=== PATIENT | female | born 1960 | race Caucasian/White ===

== ENCOUNTER 2017-11-20 19:30 | Inpatient (IN) | payer OTHER ==
[~2017-11-20] VITALS: Ht 152.4 cm; Wt 58.1 kg
[2017-11-20] MEDS ORDERED: PROAIR HFA8.5 GM INH (19:48)
[2017-11-20 20:04] LABS: ABSOLUTE BASOPHIL COUNT 0.1 /CUMM (0.0-0.2); ABSOLUTE EOSINOPHIL COUNT 0.1 /CUMM (0.0-0.7); ABSOLUTE GRANULOCYTE CT 7.1 /CUMM (1.4-6.5); ABSOLUTE LYMPH COUNT 2.5 /CUMM (1.2-3.4); ABSOLUTE MONOCYTE COUNT 0.5 /CUMM (0.10-0.60); BASOPHIL % 1.1 % (0.0-2.0); EOSINOPHIL % 0.8 % (0-5); GRANULOCYTE % 68.7 % (42.2-75.2); HEMATOCRIT 42.7 % (37-47); MEAN CORPUSCULAR HGB CONC 33.6 G/DL (33.0-37.0); MEAN CORPUSCULAR VOLUME 95.2 FL (81.0-99.0); PLATELET COUNT 385 /CUMM (130-400); RBC DISTRIBUTION WIDTH 14.3 % (11.5-14.5); RED BLOOD CELL CT 4.48 /CUMM (4.20-5.40); WHITE BLOOD CELL COUNT 10.3 /CUMM (4.8-10.8)
--- NOTE | 2017-11-20 20:30 | ED AMS/SEIZURE/WEAK/DIZZY ---
See Addendum History of Present Illness General Chief Complaint: Seizure Stated Complaint: SEIZURE Source: patient Exam Limitations: no limitations Vital Signs & Intake/Output Vital Signs & Intake/Output Vital Signs Date Time Temp Pulse Resp B/P B/P Pulse O2 O2 Flow FiO2 Mean Ox Delivery Rate 11/21 0316 98.3 78 18 116/62 99 Room Air 11/21 0212 98.1 77 18 114/60 98 Room Air 11/21 0158 98 Room Air 11/21 0030 98.4 75 18 117/57 98 Room Air 11/20 2235 98.7 82 18 109/55 97 Room Air 11/20 2002 95 Room Air 11/20 1936 97.5 93 18 147/67 95 Room Air ED Intake and Output 11/21 0000 11/20 1200 Intake Total Output Total Balance Patient 133 lb Weight Weight Standing Scale Measurement Method Triage Note: PT BIBA FROM HOME C/O SEIZURE X45 MINS PRIOR TO ARRIVAL. PT ARRIVED A&0X1. PTS BSG ON ARRIVAL 135. VSS. PT IS UNABLE TO ANSWER MOST QUESTIONS. PTS SON IN ANSWERING QUESTIONS. PT IS A DAILY SMOKER, OD ON WELLBUTRIN 2X WEEKS AGO IN HOSPITAL AND HAD MULTIPLE SEIZURES. SINCE THEN PT HAS NOT HAD ANY MORE SEIZURE UNTIL TONIGHT AROUND 1906. PTS SON WHO IS AN EMT WITNESSED SEIZURE "1-2 MIN TONIC CLONIC SEIZURE" PT FELL TO THE GROUND ,-HEADSTRIKE, -LOC, -TRAUMA. PT STATES LEFT ARM IS BOTHERING PT FROM SORENESS OF A PREVIOUS IV SITE. PT STATES NAGY FOR THE PAST FEW DAYS. PA STUDENT IN FOR EVAL. Triage Nurses Notes Reviewed? yes Onset: Abrupt Duration: hour(s): (2), better, gone now Timing: single episode today Injury Environment: home Severity: mild, moderate No Modifying Factors: none LMP (ages 10-50): unknown : No Patient currently breastfeeds: No HPI: 57 year female no past medical history presents for evaluation after a possible seizure. Patient and family member states that approximately 30 minutes prior to presentation patient was standing outside feeling well until she suddenly became unresponsive eyes rolled back in her head and foaming at the mouth and had rhythmic movements of her arms and legs. She did not bite her tongue she was not incontinent. Patient reports that she became dizzy lightheaded and passed out. She never had chest pain or shortness of breath. She was out for approximately 60-90 seconds before coming to. She was post ictal according to bystanders for approximately 15 minutes. She was confused and lethargic. The time patient arrived she return to her baseline she offers no complaints no chest pain or shortness of breath no lower extremity edema. 2 weeks ago she had a seizure after a Wellbutrin and alcohol overdose. Patient denies any history of alcohol withdrawal seizures she does not drink daily no history of alcohol withdrawal. She is not on seizure medications. She denies slurred speech or one-sided weakness. (Steve Lam) Allergies Coded Allergies: Penicillins (UPSET STOMACH PER PT 11/20/17) diphenhydramine (From BENADRYL) (UPSET STOMACH PER PT 11/20/17) (Lamberto SWEENEY,Scout Rojsa) Past History Travel History Traveled to [place] past 21 day No Medical History Any Pertinent Medical History? see below for history Neurological: NONE EENT: NONE Cardiovascular: NONE Respiratory: NONE Gastrointestinal: NONE Hepatic: NONE Renal: NONE Musculoskeletal: NONE Psychiatric: NONE Endocrine: NONE Surgical History Surgical History: non-contributory Psychosocial History What is your primary language [place]alander Tobacco Use: Current Daily Use Daily Tobacco Use Amount/Type: => 5 Cigarettes daily ETOH Use: occasional use Illicit Drug Use: denies illicit drug use Family History Hx Contributory? No (Steve Lam) Review of Systems Review of Systems Constitutional: Reports: no symptoms. EENTM: Reports: no symptoms. Respiratory: Reports: no symptoms. Cardiovascular: Reports: no symptoms. GI: Reports: no symptoms. Genitourinary: Reports: no symptoms. Musculoskeletal: Reports: no symptoms. Skin: Reports: no symptoms. Neurological/Psychological: Reports: see HPI (DIZZY LIGHTHEADED), tonic-clonic seizures. Hematologic/Endocrine: Reports: no symptoms. Immunologic/Allergic: Reports: no symptoms. All Other Systems: Reviewed and Negative (Steve Lam) Physical Exam Physical Exam General Appearance: well developed/nourished, no apparent distress, alert, awake Head: atraumatic, normal appearance Eyes: Bilateral: normal appearance, PERRL, EOMI. Ears, Nose, Throat: normal pharynx, normal ENT inspection, hearing grossly normal Neck: normal inspection, supple, full range of motion Respiratory: normal breath sounds, chest non-tender, no respiratory distress, lungs clear Cardiovascular: regular rate/rhythm, normal peripheral pulses Peripheral Pulses: 2+ radial (R), 2+ radial (L) Gastrointestinal: normal bowel sounds, soft, non-tender, no organomegaly Back: normal inspection, normal range of motion, no vertebral tenderness Extremities: normal range of motion Neurologic/Psych: no motor/sensory deficits, awake, alert, oriented x 3, normal mood/affect Reflexes: 1+: knee (R), knee (L). Skin: intact, normal color, warm/dry Lymphatic: no anterior cervical darryn Core Measures ACS in differential dx? Yes CVA/TIA Diagnosis No Sepsis Present: No Sepsis Focused Exam Completed? No (Wesley DE SOUZA,Steve) Progress Differential Diagnosis: arrythmia, alcohol intoxication, anemia, benign positional vertigo, CVA/stroke, dehydration, drug intoxication, encephalitis, electrolyte imbalance, intracranial Hem., intracranial mass/tumor, migraine NAGY, pneumonia, presyncope, post-traumatic vertigo, sepsis, seizure disorder, subarachnoid Hem., UTI/pyelo, vertebrobasilar insuff Plan of Care: Orders Procedure Date/time Status PARTIAL THROMBOPLASTIN TIME 11/21 0815 Active VRE ACTIVE SURVIELLANCE 11/21 0400 Active ACTIVE SURVEILLANCE NARES 11/21 0400 Active Skin Integrity Protocol 11/21 0321 Active Precautions 11/21 0321 Active Pain Treatment and Response 11/21 0321 Active Isolation 11/21 0321 Active Heparin Drip- ACS 11/21 0321 Active Patient Data 11/21 0315 Active Admit to inpatient 11/21 0204 Active Add-on Test (ER Only) 11/21 0133 Active TROPONIN LEVEL 11/20 2332 Complete EKG 11/[address] HEAD WO IV CONTRAST 11/20 2028 Active Add-on Test (ER Only) 11/20 1958 Active URINE DRUG SCREEN FOR ER ONLY 11/20 1958 Complete PARTIAL THROMBOPLASTIN TIME 11/21 1955 Complete PROTHROMBIN TIME 11/21 1955 Complete ETHANOL 11/21 1955 Complete Intake & Output 11/20 1941 Active FingerStick- Glucose 11/20 1938 Active Seizure Precautions 11/21 1935 Active URINALYSIS 11/21 1935 Complete TROPONIN LEVEL 11/21 1935 Complete PROLACTIN 11/21 1935 Complete MAGNESIUM 11/21 1935 Complete COMPREHENSIVE METABOLIC PANEL 11/21 1935 Complete CBC WITHOUT DIFFERENTIAL 11/21 1935 Complete EKG 11/21 1935 Active Current Medications Sig/Rachael Start time Last Medication Dose Stop Time Status Admin Heparin Sodium 25,000 UNIT Q24H 11/21 0145 AC 11/21 (Porcine) 0217 (Heparin) Sodium Chloride 500 ML Laboratory Tests 11/20/17 2358: Troponin I 0.39 *H 11/20/17 2328: Urine Opiates Screen < 100, Methadone Screen < 40, Barbiturate Screen < 60, Ur Phencyclidine Scrn < 6.00, Amphetamines Screen 500, U Benzodiazepines Scrn < 85, Urine Cocaine Screen 63, Urine Cannabis Screen < 5.00, Urinalysis HEAVY H, Urine Color YEL, Urine Clarity HAZY H, Urine pH 6.0, Ur Specific [place] >= 1.030, Urine Protein 30 H, Urine Ketones TRACE H, Urine Nitrite NEG, Urine Bilirubin NEG, Urine Urobilinogen 0.2, Ur Leukocyte Esterase NEG, Ur Microscopic SEDIMENT EXAMINED, Urine WBC RARE, Ur Epithelial Cells FEW, Urine Crystals 1+ CA OX H, Urine Bacteria MOD H, Urine Mucus FEW, Urine Hemoglobin NEG, Urine Glucose NEG 11/20/171955: Anion Gap 17 H, Estimated GFR > 60, BUN/Creatinine Ratio 20.0, Glucose 113 H, Calcium 10.1, Magnesium 2.5 H, Total Bilirubin 0.3, AST 117 H, ALT 225 H, Alkaline Phosphatase 106, Troponin I 0.06, Total Protein 7.8, Albumin 4.4, Globulin 3.4, Albumin/Globulin Ratio 1.3, Prolactin 48.9 H, PT 11.8, INR 1.08, APTT 27, CBC w Diff NO MAN DIFF REQ, RBC 4.48, MCV 95.2, MCH 32.0 H, MCHC 33.6, RDW 14.3, MPV 8.0, Gran % 68.7, Lymphocytes % 24.1, Monocytes % 5.3, Eosinophils % 0.8, Basophils % 1.1, Absolute Granulocytes 7.1 H, Absolute Lymphocytes 2.5, Absolute Monocytes 0.5, Absolute Eosinophils 0.1, Absolute Basophils 0.1, Serum Alcohol < 10.0 Patient is here after a seizure versus possible syncopal episode. Patient did have a seizure 2 weeks ago after an overdose of Wellbutrin. She denies any chest pain or shortness of breath. Labs EKG CT head ordered. Blood work is not showing any acute findings initially. Initial EKG is negative. Head CT is negative. Spoke with Dr. Bai recommends coverage with Keppra 500 mg twice a day and outpatient EEG. Patient will get a repeat EKG and troponin due to syncopal episode versus seizure. Repeat EKG is unchanged but troponin is +0.39. Spoke with Dr. Perez who recommends admission, telemetry, aspirin and heparin. Case discussed with Dr. Orantes he agrees. . Patient has no chest pain. Diagnostic Imaging: Viewed by Me: CT Scan. Discussed w/RAD: CT Scan. Radiology Impression: SEE HARD COPY REPORT NO INTRACRANIAL FINDINGS Initial ED EKG: normal sinus rhythm, ABNORMAL R WAVE PROGRESSION Repeat EKG: unchanged (Steve Lam) Departure Departure Disposition: STILL A PATIENT Condition: Stable Clinical Impression Primary Impression: NSTEMI (non-ST elevated myocardial infarction) Referrals: Britney Ballesteros APRN (PCP/Family) Departure Forms: Customer Survey General Discharge Information Admission Note Spoke With: Augie Limon MD Documentation of Exam: Documentation of any treatments & extenuating circumstances including Concerns Regarding Discharge (functional status, medication knowledge or non-compliance, living conditions, etc.) that warrant an admission rather than observation: [ Serial labs, serial EKGs, IV heparin, cardiology, echocardiogram, neurology,] (Steve Lam) Admission Note Spoke With: Augie Limon MD PA/CIRCUS ARTIST Co-Sign Statement Statement: ED Attending supervision documentation- [x] I saw and evaluated the patient. I have also reviewed all the pertinent lab results and diagnostic results. I agree with the findings and the plan of care as documented in the PA's/CIRCUS ARTIST's documentation. 11/21/17, 1:35am... I assumed care of patient with +trop 0.39... pt is now chest pain free with non acute EKG's. Pt also with syncopal episode, possible due to dysrhythmia/SC... pt merits icu level care, serial trops/ekg, cards eval in AM. Mr. Olson discussed with dr. Perez who concurs with plan. [] I have reviewed the ED Record and agree with the PA's/CIRCUS ARTIST's documentation. [] Additions or exceptions (if any) to the PAs/CIRCUS ARTIST's note and plan are summarized below: [] (Lamberto SWEENEY,Scout Rojas)
[2017-11-21 02:00] LABS: PT 11.8 SEC (9.4-12.5); PTT 27 SEC (25-37)
--- NOTE | 2017-11-21 02:39 | History & Physical ---
Alejandro Barajas 11/21/17 0238: General Information and HPI MD Statement: I have seen and personally examined MIKAELA HOOD and documented this H&P. The patient is a 57 year old F who presented with a patient stated chief complaint of [seizure]. Source of Information: patient Exam Limitations: no limitations History of Present Illness: The patient is a 57 years old lady who has come here with cheif complaint of seizure at 19:06 that was witnessed by her son which lasted for 1-2 minutes. She was standing when she had seizure and her son cuaght her and stopped her from falling. She did not have LOC and remembers everything. She has not lost the control of her bladder or bowel. This was the first time that she has had seizure. She had no dizziness, no headache, no palpitation or numbness and tingling, no change in vision. She had no change in appetite or bowel habit. She has a remote history of palpitaton 10 years ago which was investigated but nothing significant was found. She also has a history of migrane headaches but this has not been an issue recently. She has gluten sensitivity (celiac?). She also has anxiety and is on xanax for that. She has been smoking 1/2 packs of ciggarets from whrn she was 14 and has been on and off welbutrin from 10 years ago. about 10 days ago she overdosed on welbutrin (as much as one months worth) and was admitted to [facility] ICU. She had a troponin on 0.39 in the ED with normal 1st ECG, second ECG shows possible flatennings of T wave in leads I and V2. Allergies/Medications Compliance With Home Meds: GOOD Past History Travel History Traveled to [place] past 21 day No Medical History Neurological: migraine EENT: NONE Cardiovascular: NONE (Palpitation) Respiratory: NONE Gastrointestinal: NONE Hepatic: NONE Renal: NONE Musculoskeletal: NONE Psychiatric: anxiety, depression Endocrine: NONE Surgical History Surgical History: non-contributory Past Family/Social History Psychosocial History Smoking Status: Current Everyday Smoker ETOH Use: occasional use Illicit Drug Use: denies illicit drug use Review of Systems Review of Systems Constitutional: Reports: no symptoms, see HPI. EENTM: Reports: no symptoms, see HPI. Denies: blurred vision, double vision, visual changes, hearing changes. Cardiovascular: Reports: no symptoms. Respiratory: Reports: no symptoms. GI: Reports: no symptoms. Genitourinary: Reports: no symptoms. Musculoskeletal: Reports: no symptoms. Skin: Reports: no symptoms. Neurological/Psychological: Reports: no symptoms. Hematologic/Endocrine: Reports: no symptoms. Immunologic/Allergic: Reports: see HPI. Exam & Diagnostic Data Last 24 Hrs of Vital Signs/I&O Vital Signs Date Time Temp Pulse Resp B/P B/P Pulse O2 O2 Flow FiO2 Mean Ox Delivery Rate 11/21 0316 98.3 78 18 116/62 99 Room Air 11/21 0212 98.1 77 18 114/60 98 Room Air 11/21 0158 98 Room Air 11/21 0030 98.4 75 18 117/57 98 Room Air 11/20 2235 98.7 82 18 109/55 97 Room Air 11/20 2002 95 Room Air 11/20 1936 97.5 93 18 147/67 95 Room Air Intake & Output 11/21 0800 07 0000 11/20 1600 Intake Total Output Total Balance Patient 133 lb Weight Weight Standing Scale Measurement Method Physical Exam General Appearance Alert, Oriented X3, Cooperative, No Acute Distress Skin No Rashes Skin Temp/Moisture Exam: Warm/Dry Sepsis Skin Exam (color): Normal for Ethnicity HEENT Atraumatic Neck Supple, No JVD Cardiovascular Regular Rate, Normal S1, Normal S2, No Murmurs Lungs Clear to Auscultation, Normal Air Movement Abdomen Normal Bowel Sounds, Soft, No Tenderness, No Hepatospenomegaly, No Masses Neurological Normal Speech, Strength at 5/5 X4 Ext, Sensation Intact, Cranial Nerves 3-12 NL Extremities No Clubbing, No Cyanosis, No Edema, Normal Pulses, No Tenderness/ Swelling Vascular Normal Pulses, Pulses Symmetrical Sepsis Peripheral Pulse Location: Dorsalis Pedis Last 24 Hrs of Labs/Alejo: Laboratory Tests 11/20/17 2358: Troponin I 0.39 *H 11/20/17 2328: Urine Opiates Screen < 100, Methadone Screen < 40, Barbiturate Screen < 60, Ur Phencyclidine Scrn < 6.00, Amphetamines Screen 500, U Benzodiazepines Scrn < 85, Urine Cocaine Screen 63, Urine Cannabis Screen < 5.00, Urinalysis HEAVY H, Urine Color YEL, Urine Clarity HAZY H, Urine pH 6.0, Ur Specific [place] >= 1.030, Urine Protein 30 H, Urine Ketones TRACE H, Urine Nitrite NEG, Urine Bilirubin NEG, Urine Urobilinogen 0.2, Ur Leukocyte Esterase NEG, Ur Microscopic SEDIMENT EXAMINED, Urine WBC RARE, Ur Epithelial Cells FEW, Urine Crystals 1+ CA OX H, Urine Bacteria MOD H, Urine Mucus FEW, Urine Hemoglobin NEG, Urine Glucose NEG 11/20/171955: Anion Gap 17 H, Estimated GFR > 60, BUN/Creatinine Ratio 20.0, Glucose 113 H, Calcium 10.1, Magnesium 2.5 H, Total Bilirubin 0.3, AST 117 H, ALT 225 H, Alkaline Phosphatase 106, Troponin I 0.06, Total Protein 7.8, Albumin 4.4, Globulin 3.4, Albumin/Globulin Ratio 1.3, Prolactin 48.9 H, PT 11.8, INR 1.08, APTT 27, CBC w Diff NO MAN DIFF REQ, RBC 4.48, MCV 95.2, MCH 32.0 H, MCHC 33.6, RDW 14.3, MPV 8.0, Gran % 68.7, Lymphocytes % 24.1, Monocytes % 5.3, Eosinophils % 0.8, Basophils % 1.1, Absolute Granulocytes 7.1 H, Absolute Lymphocytes 2.5, Absolute Monocytes 0.5, Absolute Eosinophils 0.1, Absolute Basophils 0.1, Serum Alcohol < 10.0 Microbiology 11/22 399 UPPER RESP: Surveillance Culture - ORD 11/22 399 GI: Surveillance Culture - ORD Diagnostic Data EKG Results 1st ECG normal rate and rythem, 2nd ECG possible flatenning of T wave in Leads I and V2 Other Results Head CT scan: Normal Assessment/Plan Assessment: The patient came in with witnessed seizure, BS in ED was 135, head CT was normal and electrolytes were normal, she was overdosed with wellbutrin that decreases threshold of seizure. We need to inestigate all the possible causes of he new onset seizure. She needs neurologist consultation. She was found to have an increased troponin from 0.06 to 0.39 when she was in the ED. She is transferred to ICU to check her for ACS. She will have more troponin levels and ECGs checked. As Ranked By This Provider Problem List: 1. Seizure 2. Acute coronary syndrome Core Measures/Misc (02/01) Acute Coronary Syndrome ACS Diagnosis: No Congestive Heart Failure Congestive Heart Failure Diagnosis No Cerebrovascular Accident CVA/TIA Diagnosis: No VTE (View Protocol) VTE Risk Factors Age>40 No Mechanical VTE Prophylaxis d/t N/A MechProphylax Ordered No VTE Pharm Prophylaxis d/t NA PharmProphylax ordered Sepsis (View protocol) Sepsis Present: No If YES complete Sepsis Event Note If YES complete Sepsis Event Note Augie Limon MD 11/21/17 3838: General Information and HPI MD Statement: I have seen and personally examined MIKAELA HOOD and documented this H&P. The patient is a 57 year old F who presented with a patient stated chief complaint of [seizure]. Allergies/Medications Allergies: Coded Allergies: amoxicillin (Severe, vomitting 11/21/17) Penicillins (UPSET STOMACH PER PT 11/20/17) diphenhydramine (From BENADRYL) (UPSET STOMACH PER PT 11/20/17) gluten (Mild, GI DISTRESS 11/21/17) Exam & Diagnostic Data Last 24 Hrs of Vital Signs/I&O Vital Signs Date Time Temp Pulse Resp B/P B/P Pulse O2 O2 Flow FiO2 Mean Ox Delivery Rate 11/21 0316 98.3 78 18 116/62 99 Room Air 11/21 0212 98.1 77 18 114/60 98 Room Air 11/21 0158 98 Room Air 11/21 0030 98.4 75 18 117/57 98 Room Air 11/20 2235 98.7 82 18 109/55 97 Room Air 11/20 2002 95 Room Air 11/20 1936 97.5 93 18 147/67 95 Room Air Intake & Output 11/21 0800 11/21 0000 11/20 1600 Intake Total Output Total Balance Patient 133 lb Weight Weight Standing Scale Measurement Method Physical Exam General Appearance Alert, Oriented X3, Cooperative, No Acute Distress Skin No Rashes HEENT Atraumatic, PERRLA, EOMI Neck Supple, No JVD Cardiovascular Regular Rate, Normal S1, Normal S2, No Murmurs Lungs Clear to Auscultation, Normal Air Movement Abdomen Normal Bowel Sounds, Soft, No Tenderness, No Hepatospenomegaly, No Masses Neurological Normal Speech Last 24 Hrs of Labs/Alejo: Laboratory Tests 11/20/17 2358: Troponin I 0.39 *H 11/20/17 2328: Urine Opiates Screen < 100, Methadone Screen < 40, Barbiturate Screen < 60, Ur Phencyclidine Scrn < 6.00, Amphetamines Screen 500, U Benzodiazepines Scrn < 85, Urine Cocaine Screen 63, Urine Cannabis Screen < 5.00, Urinalysis HEAVY H, Urine Color YEL, Urine Clarity HAZY H, Urine pH 6.0, Ur Specific [place] >= 1.030, Urine Protein 30 H, Urine Ketones TRACE H, Urine Nitrite NEG, Urine Bilirubin NEG, Urine Urobilinogen 0.2, Ur Leukocyte Esterase NEG, Ur Microscopic SEDIMENT EXAMINED, Urine WBC RARE, Ur Epithelial Cells FEW, Urine Crystals 1+ CA OX H, Urine Bacteria MOD H, Urine Mucus FEW, Urine Hemoglobin NEG, Urine Glucose NEG 11/20/171955: Anion Gap 17 H, Estimated GFR > 60, BUN/Creatinine Ratio 20.0, Glucose 113 H, Calcium 10.1, Magnesium 2.5 H, Total Bilirubin 0.3, AST 117 H, ALT 225 H, Alkaline Phosphatase 106, Troponin I 0.06, Total Protein 7.8, Albumin 4.4, Globulin 3.4, Albumin/Globulin Ratio 1.3, Prolactin 48.9 H, PT 11.8, INR 1.08, APTT 27, CBC w Diff NO MAN DIFF REQ, RBC 4.48, MCV 95.2, MCH 32.0 H, MCHC 33.6, RDW 14.3, MPV 8.0, Gran % 68.7, Lymphocytes % 24.1, Monocytes % 5.3, Eosinophils % 0.8, Basophils % 1.1, Absolute Granulocytes 7.1 H, Absolute Lymphocytes 2.5, Absolute Monocytes 0.5, Absolute Eosinophils 0.1, Absolute Basophils 0.1, Serum Alcohol < 10.0 Microbiology 11/22 399 UPPER RESP: Surveillance Culture - ORD 11/22 399 GI: Surveillance Culture - ORD Core Measures/Misc (02/01) Sepsis (View protocol) If YES complete Sepsis Event Note If YES complete Sepsis Event Note Attending MD Review Statement Attending Statement Attending MD Statement: examined this patient, discuss w/resident/PA/[employer]ER Attending Assessment/Plan: This patient is a 57 years old female with a significant past medical history for a recent SI attempted with Wellbutrin (aprox 10 days ago, treated at [facility] denied this visit) who came in after a witnessed seizure (no prodrome or post- ictal symptoms). She was standing when she had a seizure and her son caught her and stopped her from falling. This is her first seizure and she remembers everything. While in the ED she had a troponin bump from 0.06 to 0.39 with normal 1st ECG, second ECG shows flattening of T wave in leads I and V2. Cardiology contacted and sent to the ICU for serial trops. ICU admission Serial Trop Repeat EKG Heparin gtt Aspirin Neurology Consult Cardiology Consult Psychiatry Consult Alon Shepard MD 11/21/17 0749: General Information and HPI Allergies/Medications Home Med list Albuterol Sulfate (Proair Hfa) 90 MCG HFA.AER.AD 2 PUF INH AD PRN RESP. ( Reported) Alprazolam 1 MG TABLET 1 TAB PO TIDPRN ANXIETY (Reported) Alprazolam 2 MG TABLET 1 TAB PO QHS PRN ANXIETY (Reported) Aspirin (Ecotrin*) 81 MG TABLET.DR 81 MG PO DAILY [facility] Atorvastatin Calcium 40 MG TABLET 40 MG PO DAILY [facility] Clopidogrel Bisulfate (Plavix) 75 MG TABLET 75 MG PO DAILY [facility] Metoprolol Tartrate 25 MG TABLET 1 TAB PO BID [facility] Core Measures/Misc (02/01) Sepsis (View protocol) If YES complete Sepsis Event Note If YES complete Sepsis Event Note Resident Review Statement Resident Statement: examined this patient, discussed with machine learning intern, reviewed EMR data (avail) Other Findings: Patient is a 57-year-old female with past medical history of palpitations on approximately 10 years prior reportedly worked up with no significant findings, history of migraines in the past currently not on any medication, gluten sensitivity, current smoker, recent intentional overdose on Wellbutrin hospitalized at [facility] 2 weeks prior to this admission presenting after a witnessed seizure. Patient reports that at approximately 7 PM on day of admission she had a seizure which was witnessed by her son. At that time patient was standing in her driveway. Reports that she started shaking and her son caught her before she could fall. States that she was conscious and remembers the events leading up to the incident and afterwards. Denies any pre-or post total state. Denies loss of consciousness, loss of bowel or bladder function, denies biting her tongue or a metallic taste in her mouth. Patient reports feeling diaphoretic however states that this is normal for her. Patient denies any chest pain, palpitations, lightheadedness, visual disturbances. Denies any recent change in her appetite. Patient reports that she has not had a seizure in the past however after team spoke to neurology this morning she reportedly had a seizure 2 weeks ago after overdosing on Welbutrin. Also of note, patient is on xanax 1mg BID PRN and 2mg qHS. Reported to team this morning she has not been taking it over the past week. Patient reports that she has a history of palpitations and was worked up by cardiology which was negative. Reports a history of migraines in the past and is not currently on any medications. Patient denies any recent fever, chills, n/v/c/d, abdominal pain, chest pain, SOB, palpitations, lightheaded, dizziness, hematuria/dysuria. PMH: As above Family history: No significant cardiac history Social history: current everyday smoker - <1/2 ppd for 40+ years, alcohol use- 2 -3 shots of vodka approximately 2-3x/week (last drink was 1.5 weeks ago), denies illicit drug use In the ED: Patient received Keppra 500 mg by mouth 1, normal saline 1 L bolus, was started on aspirin 325 mg 1 and an IV heparin drip after speaking with cardiology for elevated troponin Vitals: MAXIMUM TEMPERATURE 98.7, heart rate 77-93, respiration rate 18, blood pressure initially 147/67 came down to 114/60, saturating at 98% on room air Gen.: Patient resting comfortably in bed in no acute distress HEENT: Normocephalic atraumatic, able to equal and reactive to light and accommodation, extraocular, movements intact, moist mucosal membranes Cardiac: Regular rate and rhythm, S1 and S2, no murmurs, rubs, gallops appreciated Lungs: Clear to auscultation bilaterally Abdomen: Soft nontender nondistended positive bowel sounds Neuro: Cranial nerves II through XII intact, motor 5 out of 5 in all extremities , sensation intact Extremities: No edema, cyanosis, tenderness, pulses palpable Labs: WBC 10.3, H&H 14.3 and 42.7, platelets 385 Sodium 144, potassium 4.5, chloride 105, bicarbonate 23, BUN 18, creatinine 0.9, glucose 113, magnesium 2.5, calcium 10.1, T bili 0.3, AST 117, ALT 225, alkaline phosphatase 106, troponin 0.06 went up to 0.39, prolactin 48.9 EKG: Normal sinus rhythm, T-wave flattening and inversions in lead I, aVL Assessment and Plan: Patient is a 57 y/o female with PMH significant for palpitations, recent suicide attempt with intetional Welbutrin overdose and seizure per neurology, currently on significant amount of xanax which she has not taken over the past week presenting with what appears to be a witnessed seizure. Patient on arrival was given Keppra 500 mg by mouth 1. Patient has had no seizures since arriving in the ED. Patient in the ED was found to have troponin which jammie from 0.6-0.[address] T-wave changes on EKG. Patient remained asymptomatic. Cardiology was consulted and patient was started on an IV heparin drip. Patient received aspirin 325 mg 1. Patients LOLI score is 1, with a 5% risk of cardiovascular event in the next 14 days. Problems: 1. Elevated troponin, R/O ACS 2. Possible seizure - etiology may be secondary to recent Welbutrin use and possible withdrawal from benzo after abrupt use, will need to rule out other etiologies including infection 3. Recent history of suicide attempt, overdose on Welbutrin 4. History of anxiety 5. Current everyday smoker 6. Transaminitis - likely related to alcohol use and recent drug overdose Plan: Admit to ICU Telemetry monitoring Repeat EKG and trops Continue IV heparin Continue aspirin Start on beta anna Will continue xanax at a lower dose Neurology consult for seizure (? if this is first time) Cardiology consult for elevated troponin Psychiatry consult for recent drug overdose on Welbutrin and continued anxiety currently on xanax only - will need to be addressed prior to discharge as patient is continuing to use alcohol and has a history of drug overdose Nicotine patch PRN Continue to monitor LFTs DVT PPx: Heparin IV, ALPS Diet: NPO on D51/2NS pending further cardiology evaluation for possible stress vs cath Code: Full code
--- NOTE | 2017-11-21 02:51 | RADIOLOGY REPORT ---
EXAMINATION: XR PORTABLE CHEST CLINICAL INFORMATION: Positive troponin. Syncope. COMPARISON: None TECHNIQUE: Portable frontal view of the chest was obtained. 2:24 AM FINDINGS: No significant abnormality is noted involving the heart, lungs, mediastinum, bony thorax or soft tissues. IMPRESSION: Unremarkable examination.
[2017-11-21 03:30] VITALS: BP 104/70
[2017-11-21] MEDS ORDERED: ALPRAZOLAM1 M2 PO (04:45)
[2017-11-21] MEDS ORDERED: ALPRAZOLAM2 M2 PO (04:46)
[2017-11-21 06:26] LABS: ABSOLUTE BASOPHIL COUNT 0 /CUMM (0.0-0.2); ABSOLUTE EOSINOPHIL COUNT 0.2 /CUMM (0.0-0.7); ABSOLUTE GRANULOCYTE CT 5.3 /CUMM (1.4-6.5); ABSOLUTE LYMPH COUNT 2.8 /CUMM (1.2-3.4); ABSOLUTE MONOCYTE COUNT 0.9 /CUMM (0.10-0.60); BASOPHIL % 0.5 % (0.0-2.0); EOSINOPHIL % 1.9 % (0-5); GRANULOCYTE % 57.8 % (42.2-75.2); MEAN CORPUSCULAR HGB 31.8 PG (27.0-31.0); MEAN CORPUSCULAR HGB CONC 33.3 G/DL (33.0-37.0); MEAN CORPUSCULAR VOLUME 95.5 FL (81.0-99.0); MEAN PLATELET VOLUME 8.3 FL (7.4-10.4); PLATELET COUNT 331 /CUMM (130-400); RBC DISTRIBUTION WIDTH 14.7 % (11.5-14.5); RED BLOOD CELL CT 3.71 /CUMM (4.20-5.40); WHITE BLOOD CELL COUNT 9.2 /CUMM (4.8-10.8)
[2017-11-21 06:30] LABS: HEMATOCRIT 35.4 % (37-47)
[2017-11-21 08:00] VITALS: BP 108/68
--- NOTE | 2017-11-21 08:15 | PN- Resident CRCU ---
Rashawn SWEENEY,Mandeep 11/21/17813: Subjective HPI/CRCU Issues: 57 year old female with past medical history significant for smoking, anxiety, and depression on Xanax for the past several years who was recently prescribed wellbutin for smoking cessation and had an intentional overdose managed at [facility], with a reported seizure at that time (reportedly attributed to meds), presented with presyncopal symptoms, possible seizure, and admitted to ICU with elevated troponins. The patient was home in her driveway after eating [employer], well hydrated, when her presenting complaints started. She went outside to smoking a cigarette when she reported feeling diaphoretic, nauseous, and unsteady on her feet. She felt light headed and started to go down to the ground and her son caught her. She denies any loss of consciousness or head trauma. She never had any changes in her vision, smell, taste, or hearing. She didn't have tonic clonic movements, tongue biting, confusion, or loss of bowel/bladder continence. She denies any chest pain or dyspnea. 24 Hour Events: sinus rhythm on telemetry HR 60s-70s, rare PVCs, no arrythmias Objective Vital Signs & I&O Last 8 Hrs of Vitals and I&O: BP 113/54, HR 70, RR 13 SpO2 98% RA, Temp 97.6 Exam General Appearance: well developed/nourished, no apparent distress, alert, awake , comfortable Neck: normal inspection, supple Respiratory: normal breath sounds, chest non-tender, no respiratory distress Cardiovascular: regular rate/rhythm Gastrointestinal: normal bowel sounds, soft, non-tender Extremities: normal inspection, no edema Current Medications: Current Medications Sig/Rachael Start time Last Medication Dose Route Stop Time Status Admin Alprazolam 1 MG AT BEDTIME NEED.. 11/21 0500 AC PO 11/28 0459 Alprazolam 0.5 MG TID PRN 11/21 0500 AC PO 11/28 045 Aspirin 325 MG DAILY 11/21 899 AC PO Aspirin 0 .STK-MED ONE 11/21 0108 DC PO Aspirin 325 MG ONCE ONE 11/21 010 DC 11/21 PO 11/21 010 0110 Dextrose/Sodium 1,000 ML .Q20H 11/21 0400 AC 11/21 Chloride IV 0514 Folic Acid 1 MG DAILY 07/07 0900 AC PO Heparin Sodium 0 .STK-MED ONE 11/21 0204 DC (Porcine) .ROUTE Heparin Sodium 4,000 UNIT ONCE ONE 11/21 0145 DC 11/21 (Porcine) IV 11/21 0146 0217 Heparin Sodium 25,000 UNIT Q24H 11/21 0145 AC 11/21 (Porcine) IV 0217 Sodium Chloride 500 ML Levetiracetam 500 MG ONCE ONE 11/20 2200 DC 11/20 PO 11/20 2201 2234 Multivitamins 1 TAB DAILY 11/21 899 AC PO Nicotine 14 MG DAILY PRN 11/21 0400 AC TOP Sodium Chloride 1,000 ML BOLUS ONE 11/20 2315 DC 11/20 IV 11/21 0014 2313 Thiamine HCl 100 MG DAILY 11/21 899 AC PO EKG Findings: sinus rhythm with nonspecific ST segment changes CT Scan Findings: CT Head pending Impression/Plan Impression/Problem List Impression: 57 year old female with past medical history significant for smoking, anxiety, and depression on Xanax for the past several years who was recently prescribed wellbutin for smoking cessation and had an intentional overdose managed at [facility], with a reported seizure at that time (reportedly attributed to meds), presented with presyncopal symptoms, possible seizure, and admitted to ICU with elevated troponins. Presyncope with elevated troponins: Risk factors of smoking, HLD Likely Type II NSTEMI Lipid panel LDL 98, HDL 29, triglycerides 133 Given aspirin 325mg in the ED, load with plavix 300mg Start aspirin 81, plavix 75, metoprolol, atorvastatin, and nitropaste Continue heparin gtt Plan for nuclear exercise stress test Thursday for risk stratification Troponins peaked and trending down, 0.06-> 0.39 -> 0.49-> 0.19 Check echocardiogram Patient wants to leave AMA and has capacity to make her own decisions May need cardiac catheterization in the future Transaminitis: ALT > AST 225/117, improved to 160/72 Continue to trend, unclear etiology Possible seizure vs TIA: Neurology consulted, seizure unlikely History suggests a cardiac etiology vs neurological, TIA is possible Check CT Head Outpatient EEG Discontinue keppra Continue aspirin/statin Regular diet DVT ppx-on heparin gtt Full code Problem List: 1. NSTEMI (non-ST elevated myocardial infarction) Pain Ratin Tomorrow's Labs & Rationales: icu bundle, CBC Plan DVT/Prophylaxis: mechanical, pharmacological Lachelle SWEENEY,[facility] 11/21/17 0959: Attending MD Review Statement Attending Sign Off Attending Cosign Statement: I have: examined this patient, reviewed avalbl EMR data, personally reviewd images, discussd w/resident/PA/[employer]OT[employer], discussed mgmt plan w/mariano, discussed mgmt plan w/CM, discussed mgmt plan w/pt, agreed w/resident/PA/WET [employer]OT[employer], amended to note. Other Findings: Patient is a 57 y/o female with PMH significant for palpitations, recent suicide attempt with intetional Welbutrin overdose and seizure per neurology, currently on significant amount of xanax which she has not taken over the past week presenting with what appears to be a witnessed seizure. Now here with Suspected seizure stable Elevated troponin unlikely ACS cardio to see REcent suicide attempt Smoker Elevated trop in a pt with etoh use and drug use in the recent past REC Continue monitoring Cardiology to see Unlikely acute coronary artery disease but needs to be followed Aspirin Continue low-dose beta anna Continue Xanax Neurology to see Psychiatry consult Monitor LFTs We'll follow closely Patient in ICU total time spent 38 minutes
[2017-11-21 08:51] LABS: PTT 44 SEC (25-37)
--- NOTE | 2017-11-21 09:59 | Cons- Neurology ---
General Information and HPI Consulting Request Date of Consult: 11/21/17 Requested By: Augie Limon MD History of Present Illness: 57-year-old white female with concern for possible seizure. The patient is a 57 -year-old female with history of anxiety and depression who approximately one week ago was admitted to [facility] after a suicide attempt with Wellbutrin. Per the patient, she displayed some problems with recollection surrounding that event and an unwitnessed seizure was questioned however she was never started on an anticonvulsant. Yesterday, while walking in the driveway with her son, she became lightheaded and apparently was assisted by her son who questioned as to whether she was having a seizure. The patient adamantly states that there was no loss of consciousness. There was no tongue biting or urinary incontinence. There may have been some shakiness however to the best of my ability there was no history of tonic-clonic movements. She seems somewhat confused thereafter and she was brought to the emergency room where she quickly returned to baseline. She was started empirically, over the phone, on Keppra. She was admitted for observation to the ICU as there was a troponin leak for which she is to see cardiology. The patient has no prior history of seizure, head trauma or meningoencephalitis. She does admit to a history of chronic Xanax use however she has been off of this preparation for approximately 1 week. Allergies/Medications Allergies: Coded Allergies: amoxicillin (Severe, vomitting 11/21/17) Penicillins (UPSET STOMACH PER PT 11/20/17) diphenhydramine (From BENADRYL) (UPSET STOMACH PER PT 11/20/17) gluten (Mild, GI DISTRESS 11/21/17) Home Med List: Alprazolam 1 MG TABLET 1 TAB PO TIDPRN ANXIETY (Reported) Alprazolam 2 MG TABLET 1 TAB PO QHS PRN ANXIETY (Reported) Review of Systems Review of Systems: Notable for anxiety with depression, lightheadedness and some diaphoresis. 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 Home Services at Home: None Smoking Status: Current Everyday Smoker ETOH Use: occasional use Illicit Drug Use: denies illicit drug use Exam & Diagnostic Data Vital Signs and I&O Vital Signs Date Time Temp Pulse Resp B/P B/P Pulse O2 O2 Flow FiO2 Mean Ox Delivery Rate 11/21 08 98 Room Air 11/21 0800 97.6 70 13 108/68 98 Room Air 11/21 0400 96 Room Air 11/21 0330 98.0 70 20 104/70 96 Room Air 11/21 0316 98.3 78 18 116/62 99 Room Air 11/21 0212 98.1 77 18 114/60 98 Room Air 11/21 0158 98 Room Air 11/21 0030 98.4 75 18 117/57 98 Room Air 11/20 2235 98.7 82 18 109/55 97 Room Air 11/20 2002 95 Room Air 11/20 1936 97.5 93 18 147/67 95 Room Air Intake & Output 11/21 1600 11/21 0800 07 0000 Intake Total 103 Output Total Balance 103 Intake, IV 103 Number 0 Bowel Movements Patient 137 lb 133 lb Weight Weight Bed scale Standing Scale Measurement Method Pleasant middle-aged female in no acute distress. The head was normocephalic and atraumatic. Higher cortical function was intact. Speech was fluent. Pupils were equal and reactive. Extraocular movements were full. There was no nystagmus. Facial strength and sensation was intact. Hearing was normal. Tongue was midline. Motor examination showed no drift of the upper extremities. There was no focal or lateralizing weakness. Deep tendon reflexes were symmetric. Plantar responses were flexor. Fine finger movements and rapid alternating movements performed normally. Sensory examination was normal to light touch and joint position. The gait was not evaluated. Assessment/Plan Assessment: The history, as articulately presented to me by the patient, does not strongly speak for seizure. She has no history of cerebral scar, serious brain injury or loss of consciousness. With both of these brief, reported events, there was no incontinence, tongue biting or tonic-clonic activity. Her examination at present is completely normal. Recommendations: The patient will be briefly observed in the ICU, more to rule out VA than for this very questionable seizure. I would discontinue her Keppra. She should have an EEG; this may be performed as an outpatient either here at [facility] or in our office. She should be advised to refrain from driving until the EEG and follow-up with neurology. Please feel free to call with any questions. Consult Acknowledgment - Thank you for your consult request.
--- NOTE | 2017-11-21 10:59 | Cons- Cardiology ---
General Information and HPI Consulting Request Date of Consult: 11/21/17 Requested By: Augie Limon MD History of Present Illness: This patient is a 57 year old female with history of dyslipidemia and tobacco abuse who was brought to the ER for evaluation of an off-balance feeling followed by a fall. The patient was caught and did not hit the ground but was noted to have decreased sensorium that improved somewhat after ten minute and became normal after 30minute to 45 minutes. There were no witnessed rhythmic movements or incontinence. The patient denies a feeling of lightheadedness that preceded this event and there were no associated palpitations. The patient denies any chest pain, pressure or tightness but does have reflux that does not appear to be well treated by her antacid therapy. At baseline, she can walk quickly and go up a flight of stairs without chest discomfort or shortness of breath. She did report having palpitations about 15 years ago. In the ER the patient was noted to have an increased troponin which is trending upward. A couple weeks ago the patient also had a syncopal episode which was attributed to an overdose with Wellbutryn. Allergies/Medications Allergies: Coded Allergies: amoxicillin (Severe, vomitting 11/21/17) Penicillins (UPSET STOMACH PER PT 11/20/17) diphenhydramine (From BENADRYL) (UPSET STOMACH PER PT 11/20/17) gluten (Mild, GI DISTRESS 11/21/17) Home Med List: Alprazolam 1 MG TABLET 1 TAB PO TIDPRN ANXIETY (Reported) Alprazolam 2 MG TABLET 1 TAB PO QHS PRN ANXIETY (Reported) Review of Systems Review of Systems: A review of systems is unremarkable. 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 Home Services at Home: None Smoking Status: Current Everyday Smoker (2ppd until recently) ETOH Use: Moderate use Illicit Drug Use: denies illicit drug use Exam & Diagnostic Data Vital Signs and I&O Vital Signs Date Time Temp Pulse Resp B/P B/P Pulse O2 O2 Flow FiO2 Mean Ox Delivery Rate 11/21 08 98 Room Air 11/21 0800 97.6 70 13 108/68 98 Room Air 11/21 0400 96 Room Air 11/21 0330 98.0 70 20 104/70 96 Room Air 11/21 0316 98.3 78 18 116/62 99 Room Air 11/21 0212 98.1 77 18 114/60 98 Room Air 11/21 0158 98 Room Air 11/21 0030 98.4 75 18 117/57 98 Room Air 11/20 2235 98.7 82 18 109/55 97 Room Air 11/20 2002 95 Room Air 11/20 1936 97.5 93 18 147/67 95 Room Air Intake & Output 11/21 1600 11/21 0811/21 0000 11/20 1600 11/20 0800 11/20 0000 Intake Total 103 Output Total Balance 103 Intake, IV 103 Number 0 Bowel Movements Patient 137 lb 133 lb Weight Weight Bed scale Standing Scale Measurement Method Physical Exam: General: WD/WN female in NAD; alert and oriented x 3 HEENT: NC/AT, PERRL, EOMI Neck: no JVD, no carotid bruit Heart: RRR w/o murmur Lungs: clear bilaterally Abdomen: soft, NT, +ve bowel sounds, mid line scar Extremities: no edema Assessment/Plan Assessment/Plan * The differential for this patient's event includes, but is not limited to, a TIA, seizure, hemodynamic instability due to dehydration and cardiac dysrhythmia. Neurology does not feel that her presentation is classic for a seizure and is inclined to pursue an outpatient workup for this. In consideration of her rising troponin and reports of chest discomfort that are attributed to GERD we need to seriously consider arrhyhtmia as a possible cause of this event. I do get the sense that the patient both, has a poor memory and tends to play down her symptoms. Monitor on telemetry. * Follow cardiac enzymes until they peak. * We will plan of risk stratification with a treadmill nuclear stress test on Thursday. * Obtain an echocardiogram. * Begin aspirin, Plavix 75mg daily after a 300mg loading dose and IV heparin. * Begin NTG paste 1/2 inch Q 6 hours and Metoprolol 25mg BID. Begin Atorvastatin 40-mg daily. * No tobacco or nicotine. Anxiolytics for tobacco withdrawal. * Increased LFT's are likely related to alcohol abuse and should be followed. Observe for withdrawal symptoms. Consult Acknowledgment - Thank you for your consult request.
--- NOTE | 2017-11-21 12:40 | Cons- Psychiatry ---
Psychiatric Consult Date of Consult: 11/21/17 Reason for Consult: Recent intentional overdose about 2 weeks ago and she was admitted to [facility] History of Present Illness: 57-year-old / from recently White woman who was admitted to medicine with suspicion of a possible seizure reportedly witnessed her son which lasted for 1-2 minutes. She was standing when she had seizure and her son cuaght her and stopped her from falling. She claims that she did not have LOC and remembers everything. She reported that she has anxiety and has been on Xanax for years. She has been smoking 1/2 packs of ciggarets from whrn she was 14 and has been on and off welbutrin from 10 years ago. Reportedly, about 10 days ago, she overdosed on Welbutrin (as much as one months worth) and was admitted to [facility] ICU. She said she was not seen by psychiatry (?) then and was not admitted to psych at [facility]. She claims she was kept only overnight. She reported that she has an intake with [facility] for outpatient treatment. She denies abusing her Xanax or other drugs. She denied abusing alcohol. She said she was referred to [facility] by [facility]. This makes me suspect that she was suspected of abusing either alcohol or Xanax or both. Allergies: Coded Allergies: amoxicillin (Severe, vomitting 11/21/17) Penicillins (UPSET STOMACH PER PT 11/20/17) diphenhydramine (From BENADRYL) (UPSET STOMACH PER PT 11/20/17) gluten (Mild, GI DISTRESS 11/21/17) Current Medications: Current Medications Sig/Rachael Start time Last Al Hydroxide/Mg 30 ML ONCE ONE 11/21 1615 DC Hydroxide PO 11/21 1616 Alprazolam 1 MG AT BEDTIME NEED.. 11/21 0500 AC PO 11/28 0459 Alprazolam 0.5 MG TID PRN 11/21 0500 AC PO 11/28 0459 Aspirin 325 MG DAILY 11/21 899 AC PO PO PO 11/21 0101 0110 Aspirin Buffered 81 MG DAILY 11/21 09 AC 11/21 PO 1103 Atorvastatin Calcium 40 MG 1700 11/21 1700 AC 11/21 PO 1650 Calcium Carbonate 500 MG TID PRN 11/21 1615 AC PO Clopidogrel Bisulfate 75 MG DAILY 11/22 899 AC PO PO 11/21 1431 1535 Dextrose/Sodium 1,000 ML .Q20H 11/21 0400 DC 11/21 Chloride IV 0514 Folic Acid 1 MG DAILY 11/21 899 AC 11/21 PO 0944 Heparin Sodium 4,000 UNIT ONCE ONE 11/21 0930 DC 11/21 (Porcine) IV 11/21 0931 0944 Heparin Sodium 0 .STK-MED ONE 11/21 0204 DC (Porcine) .ROUTE Heparin Sodium 4,000 UNIT ONCE ONE 11/21 0145 DC 11/21 (Porcine) IV 11/21 0146 0217 Heparin Sodium 25,000 UNIT Q24H 11/21 0145 AC 11/21 (Porcine) IV 0217 Sodium Chloride 500 ML PO 11/20 2201 2234 Metoprolol Tartrate 12.5 MG BID 11/21 899 AC 11/21 PO 1103 Multivitamins 1 TAB DAILY 11/21 899 AC 11/21 PO 0944 Nicotine 14 MG DAILY PRN 11/21 0400 AC TOP Nitroglycerin 0.5 GM Q6 11/21 1800 AC 11/21 TOP 1650 Omeprazole 40 MG DAILY AC 11/22 699 AC PO Omeprazole 20 MG ONCE ONE 11/21 1615 DC 11/21 PO 11/21 1616 1650 IV 11/21 0014 2313 Thiamine HCl 100 MG DAILY 11/21 899 AC 11/21 PO 0944 Past History Past Medical History Neurological: migraine, 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: NONE Cardiovascular: hyperlipidemia Respiratory: NONE Gastrointestinal: GERD Hepatic: NONE Renal: NONE Musculoskeletal: NONE Psychiatric: anxiety, depression Endocrine: NONE Past Surgical History Surgical History: cholecystectomy, hysterectomy (with BSO), arthroscopic surgery on right knee for a meniscal tear left forearm surgery Psychosocial History Strengths/Capabilities: The patient seemed to be intelligent, has a supportive son, has a job, and is motivated to change Physical Limitations (Interventions): denied Psychiatric Treatment History Psych Treatment Psychiatric Treatment Yes Inpatient Treatment No Outpatient Treatment Yes Location of Treatment Unknown, she claims she was tried on SSRIs Reason for Treatment Anxiety Dates of Treatment several years back Response to Treatment she claims that the only thing that helped was Xanax Diagnosis: Unspecified Anxiety Disorder Suspicion of Sedative-Hypnotic/Anxiolytic Use Disorder Risk Factors: history of suicide atmpts, Recent intentional overdose of Wellbutrin, biological brother committed suicide at age 17 (self-inflicted gun- shot) Substance Use/Abuse History Drug Use/Abuse Substances Used/Abused Yes (?? Xanax) Substance Used/Abused Benzodiazepines First Use several years ago Last Used still on Xanax How much used/taken she claims no more than 2 mg per day How often daily For how long several years Route of use PO Substance Abuse Treatment Substance Abuse Treatment Past Substance Abuse [place] Yes (suspected, pt. denied) Inpatient Treatment No Outpatient Treatment Yes Location of Treatment will be starting [facility] Reason for Treatment unknown Dates of Treatment intake on Thursday11/23/2017 Response to Treatment not started yet Comments: There is not enough information as patient may be down-playing her alcohol and/ or substance use Assessment/Plan Mental Status Orientation: Current situation, Person, Place, Person, Place, Situation Affect: Appropriate, WNL Speech: Normal, WNL Neuro-vegetative: WNL Mental Status Exam: alert, oriented to time, place and person calm and cooperative, pleasant good eye contact , no tremors, no sweating denied wishing or thinking of suicide acknowledged depression and anxiety due to multiple reasons including separation from recently coherent, no thought disorder denied feeling paranoid, there were no delusions she seemed to have good attention and concentration and did not have difficulty with information processing There was no evidence of short-term memory impairment Lab Results: Laboratory Tests 11/21 11/21 11/21 11/21 1530 1201 0817 0555 Chemistry Sodium (137 - 145 mmol/L) 143 Potassium (3.5 - 5.1 mmol/L) 4.2 Chloride (98 - 107 mmol/L) 110 H Carbon Dioxide (22 - 30 mmol/L) 24 Anion Gap (5 - 16) 9 BUN (7 - 17 mg/dL) 20 H Creatinine (0.5 - 1.0 mg/dL) 0.7 Estimated GFR (>60 ml/min) > 60 Glucose (65 - 99 mg/dL) 106 H Calcium (8.4 - 10.2 mg/dL) 8.6 Phosphorus (2.5 - 4.5 mg/dL) 3.9 Magnesium (1.6 - 2.3 mg/dL) 2.4 H Total Bilirubin (0.2 - 1.3 mg/dL) 0.2 AST (14 - 36 U/L) 72 H ALT (9 - 52 U/L) 160 H Troponin I (< 0.11 ng/ml) 0.19 *H 0.49 *H Albumin (3.5 - 5.0 g/dL) 3.2 L Triglycerides (<150 mg/dL) 133 Cholesterol (<200 MG/DL) 153 LDL Cholesterol, Calc (65 - 129 mg/dL) 98 HDL Cholesterol (40 - 60 mg/dL) 29 L Cholesterol/HDL Ratio (0.00 - 4.23 %) 5 H Coagulation APTT (25 - 37 SEC) 70 H 44 H Hematology CBC w Diff NO MAN DIFF REQ WBC (4.8 - 10.8 /CUMM) 9.2 RBC (4.20 - 5.40 /CUMM) 3.71 L Hgb (12.0 - 16.0 G/DL) 11.8 L Hct (37 - 47 %) 35.4 L MCV (81.0 - 99.0 FL) 95.5 MCH (27.0 - 31.0 PG) 31.8 H MCHC (33.0 - 37.0 G/DL) 33.3 RDW (11.5 - 14.5 %) 14.7 H Plt Count (130 - 400 /CUMM) 331 MPV (7.4 - 10.4 FL) 8.3 Gran % (42.2 - 75.2 %) 57.8 Lymphocytes % (20.5 - 51.1 %) 30.1 Monocytes % (1.7 - 9.3 %) 9.7 H Eosinophils % (0 - 5 %) 1.9 Basophils % (0.0 - 2.0 %) 0.5 Absolute Granulocytes (1.4 - 6.5 /CUMM) 5.3 Absolute Lymphocytes (1.2 - 3.4 /CUMM) 2.8 Absolute Monocytes (0.10 - 0.60 /CUMM) 0.9 H Absolute Eosinophils (0.0 - 0.7 /CUMM) 0.2 Absolute Basophils (0.0 - 0.2 /CUMM) 0 11/20 11/20 2358 2328 Chemistry Troponin I (< 0.11 ng/ml) 0.39 *H Toxicology Urine Opiates Screen (>2000 NG/ML) < 100 Methadone Screen (>300 NG/ML) < 40 Barbiturate Screen (>200 NG/ML) < 60 Ur Phencyclidine Scrn (>25 NG/ML) < 6.00 Amphetamines Screen (>1000 NG/ML) 500 U Benzodiazepines Scrn (>200 NG/ML) < 85 Urine Cocaine Screen (>300 NG/ML) 63 Urine Cannabis Screen (>50 NG/ML) < 5.00 Urines Urinalysis HEAVY H Urine Color (YEL,AMB,STR) YEL Urine Clarity (CLEAR) HAZY H Urine pH (5.0 - 8.0) 6.0 Ur Specific [place] (1.001 - 1.035) >= 1.030 Urine Protein (NEG,<30 MG/DL) 30 H Urine Ketones (NEG) TRACE H Urine Nitrite (NEG) NEG Urine Bilirubin (NEG) NEG Urine Urobilinogen (0.1 - 1.0 EU/dl) 0.2 Ur Leukocyte Esterase (NEG) NEG Ur Microscopic SEDIMENT EXAMINED Urine WBC (0 - 2 /HPF) RARE Ur Epithelial Cells (NONE,FEW) FEW Urine Crystals 1+ CA OX H Urine Bacteria (NEG/NONE) MOD H Urine Mucus (FEW,NONE) FEW Urine Hemoglobin (NEG) NEG Urine Glucose (N MG/DL) NEG 11/21 1955 Chemistry Sodium (137 - 145 mmol/L) 144 Potassium (3.5 - 5.1 mmol/L) 4.5 Chloride (98 - 107 mmol/L) 105 Carbon Dioxide (22 - 30 mmol/L) 23 Anion Gap (5 - 16) 17 H BUN (7 - 17 mg/dL) 18 H Creatinine (0.5 - 1.0 mg/dL) 0.9 Estimated GFR (>60 ml/min) > 60 BUN/Creatinine Ratio (7 - 25 %) 20.0 Glucose (65 - 99 mg/dL) 113 H Calcium (8.4 - 10.2 mg/dL) 10.1 Magnesium (1.6 - 2.3 mg/dL) 2.5 H Total Bilirubin (0.2 - 1.3 mg/dL) 0.3 AST (14 - 36 U/L) 117 H ALT (9 - 52 U/L) 225 H Alkaline Phosphatase (<127 U/L) 106 Troponin I (< 0.11 ng/ml) 0.06 Total Protein (6.3 - 8.2 g/dL) 7.8 Albumin (3.5 - 5.0 g/dL) 4.4 Globulin (1.9 - 4.2 gm/dL) 3.4 Albumin/Globulin Ratio (1.1 - 2.2 %) 1.3 Prolactin (3.0 - 18.6 ng/mL) 48.9 H Coagulation PT (9.4 - 12.5 SEC) 11.8 INR (0.90 - 1.19) 1.08 APTT (25 - 37 SEC) 27 Hematology CBC w Diff NO MAN DIFF REQ WBC (4.8 - 10.8 /CUMM) 10.3 RBC (4.20 - 5.40 /CUMM) 4.48 Hgb (12.0 - 16.0 G/DL) 14.3 Hct (37 - 47 %) 42.7 MCV (81.0 - 99.0 FL) 95.2 MCH (27.0 - 31.0 PG) 32.0 H MCHC (33.0 - 37.0 G/DL) 33.6 RDW (11.5 - 14.5 %) 14.3 Plt Count (130 - 400 /CUMM) 385 MPV (7.4 - 10.4 FL) 8.0 Gran % (42.2 - 75.2 %) 68.7 Lymphocytes % (20.5 - 51.1 %) 24.1 Monocytes % (1.7 - 9.3 %) 5.3 Eosinophils % (0 - 5 %) 0.8 Basophils % (0.0 - 2.0 %) 1.1 Absolute Granulocytes (1.4 - 6.5 /CUMM) 7.1 H Absolute Lymphocytes (1.2 - 3.4 /CUMM) 2.5 Absolute Monocytes (0.10 - 0.60 /CUMM) 0.5 Absolute Eosinophils (0.0 - 0.7 /CUMM) 0.1 Absolute Basophils (0.0 - 0.2 /CUMM) 0.1 Toxicology Serum Alcohol (<10 MG/DL) < 10.0 Diffential Diagnosis: Unspecified Anxiety Disorder Unspecified Depressive Disorder Adjustment Disorder with depression and anxiety (adjusting to multiple psychosocial stressors) Impression: 57-year-old white female who was admitted to rule out seizure vs. arrhythmias or other causes for her presentation which is not clear whether it was a seizure or not. She does not think so. The patient has a long-standing anxiety disorder and has been on Xanax for several years. She reported that she has an intake at [facility] in [place] the day after tomorrow (Thursday) She does not present with any thoughts of self-harm or wishing and does not present with any violence or threats of homicide. She also does not present with any psychotic or manic symptoms. Provisional Treatment Plan: Recommendations: No need for inpatient psychiatric care. The patient may be discharge at the will of the medical team. The patient has capacity to make her own decisions, including signing AGAINST MEDICAL ADVICE. The patient seemed to be very reluctant to consider any other options besides Xanax. She reported that she will discuss this with the psychiatrist at [facility]. No other psychotropic recommendations at this point.
[2017-11-21 16:00] VITALS: BP 110/60
[2017-11-21 16:04] LABS: PTT 70 SEC (25-37)
[2017-11-22] VITALS: BP 114/66
[2017-11-22 03:32] LABS: ABSOLUTE BASOPHIL COUNT 0.1 /CUMM (0.0-0.2); ABSOLUTE EOSINOPHIL COUNT 0.2 /CUMM (0.0-0.7); ABSOLUTE GRANULOCYTE CT 5.9 /CUMM (1.4-6.5); ABSOLUTE LYMPH COUNT 3.4 /CUMM (1.2-3.4); ABSOLUTE MONOCYTE COUNT 0.7 /CUMM (0.10-0.60); BASOPHIL % 0.8 % (0.0-2.0); EOSINOPHIL % 1.6 % (0-5); GRANULOCYTE % 57.6 % (42.2-75.2); HEMATOCRIT 38.8 % (37-47); MEAN CORPUSCULAR HGB 31.8 PG (27.0-31.0); MEAN CORPUSCULAR HGB CONC 33.4 G/DL (33.0-37.0); MEAN CORPUSCULAR VOLUME 95.1 FL (81.0-99.0); MEAN PLATELET VOLUME 8.3 FL (7.4-10.4); PLATELET COUNT 386 /CUMM (130-400); RBC DISTRIBUTION WIDTH 14.6 % (11.5-14.5); RED BLOOD CELL CT 4.07 /CUMM (4.20-5.40); WHITE BLOOD CELL COUNT 10.3 /CUMM (4.8-10.8)
[2017-11-22 03:47] LABS: PTT 63 SEC (25-37)
[2017-11-22 08:00] VITALS: BP 94/62
--- NOTE | 2017-11-22 08:20 | PN- Resident CRCU ---
Wil SWEENEY,Damian 11/22/17 0820: Subjective HPI/CRCU Issues: Elevated Troponins Seizure Patient seen and examined. Reports feeling well. Wishes to go home today as her niece is visiting town and does not want to stay another day for her stress test. She understands the risks associated with her condition but is willing to sign out AMA. 24 Hour Events: no acute overnight events. Objective Vital Signs & I&O Last 8 Hrs of Vitals and I&O: . Exam General Appearance: no apparent distress, alert, awake, comfortable Head: atraumatic, normal appearance Respiratory: normal breath sounds, chest non-tender, lungs clear Cardiovascular: regular rate/rhythm Gastrointestinal: soft, non-tender Extremities: no edema Cranial Nerves: normal hearing, normal speech Skin: intact, normal color, warm/dry Skin Temp/Moisture Exam: Warm/Dry Sepsis Skin Exam (color): Normal for Ethnicity Current Medications: Current Medications Sig/Rachael Start time Last Medication Dose Route Stop Time Status Admin Al Hydroxide/Mg 30 ML ONCE ONE 11/21 1615 DC Hydroxide PO 11/21 1616 Alprazolam 0.5 MG ONCE ONE 11/22 1015 DC PO 11/22 1016 Alprazolam 1 MG AT BEDTIME NEED.. 11/21 0500 AC PO 11/28 0459 Alprazolam 0.5 MG TID PRN 11/21 0500 AC 11/22 PO 11/28 0459 0949 Aspirin 325 MG DAILY 11/21 0900 DC PO Aspirin Buffered 81 MG DAILY 11/21 0900 AC 11/22 PO 0946 Atorvastatin Calcium 40 MG 1700 11/21 1700 AC 11/21 PO 1650 Calcium Carbonate 500 MG TID PRN 11/21 1615 AC PO Clopidogrel Bisulfate 75 MG DAILY 11/22 0900 AC 11/22 PO 0946 Clopidogrel Bisulfate 300 MG ONCE ONE 11/21 1430 DC 11/21 PO 11/21 1431 1535 Dextrose/Sodium 1,000 ML .Q20H 11/21 0400 DC 11/21 Chloride IV 0514 Folic Acid 1 MG DAILY 11/21 0900 AC 11/22 PO 0946 Heparin Sodium 25,000 UNIT Q24H 11/21 0145 AC 11/22 (Porcine) IV 0652 Sodium Chloride 500 ML Metoprolol Tartrate 25 MG BID 11/22 2100 AC PO Metoprolol Tartrate 12.5 MG BID 11/21 899 DC 11/21 PO 2111 Multivitamins 1 TAB DAILY 11/21 0900 AC 11/22 PO 0945 Nicotine 14 MG DAILY PRN 11/21 0400 AC TOP Nitroglycerin 0.5 GM Q6 11/21 1800 AC 11/22 TOP 0656 Omeprazole 40 MG DAILY AC 11/22 0700 AC 11/22 PO 0658 Omeprazole 20 MG ONCE ONE 11/21 1615 DC 11/21 PO 11/21 1616 1650 Thiamine HCl 100 MG DAILY 11/21 899 AC 11/22 PO 0945 Impression/Plan Impression/Problem List Impression: 57 year old female with past medical history significant for smoking, anxiety, and depression on Xanax for the past several years who was recently prescribed wellbutin for smoking cessation and had an intentional overdose managed at [place], with a reported seizure at that time (reportedly attributed to meds), presented with presyncopal symptoms, possible seizure, and admitted to ICU with elevated troponins. Presyncope with elevated troponins: Risk factors of smoking, HLD Likely Type II NSTEMI Lipid panel LDL 98, HDL 29, triglycerides 133 Continue aspirin 81, plavix 75, metoprolol, atorvastatin, and nitropaste Continue heparin gtt Plan for nuclear exercise stress test tomorrow for risk stratification. If the patient stays Otherwise this will have to be done as an outpatient. Troponins have peaked 0.06-> 0.39 -> 0.49-> 0.19 Echocardiogram - pending Patient wants to leave AMA and has capacity to make her own decisions May need cardiac catheterization in the future Transaminitis: ALT > AST 225/117, improved to 155/55 Continue to trend, unclear etiology. Could be due to alcohol, though this normally gives a 2:1 ratio of AST:ALT Possible seizure vs TIA: Neurology consulted, seizure unlikely History suggests a cardiac etiology vs neurological, TIA is possible Outpatient EEG Off keppra Patient advised not to drive until she has had her EEG and cleared by Neurology. Regular diet DVT ppx-on heparin gtt Full code Problem List: 1. NSTEMI (non-ST elevated myocardial infarction) Pain Ratin Tomorrow's Labs & Rationales: BEP Plan DVT/Prophylaxis: mechanical, pharmacological Lachelle SWEENEY,[facility] 11/22/17 1112: Attending MD Review Statement Attending Sign Off Attending Cosign Statement: I have: examined this patient, reviewed avalbl EMR data, personally reviewd images, discussd w/resident/PA/FLAME ANNEALING MACHINE SETTER, discussed mgmt plan w/mariano, discussed mgmt plan w/CM, discussed mgmt plan w/pt, agreed w/resident/PA/FLAME ANNEALING MACHINE SETTER, amended to note. Other Findings: Patient is a 57 y/o female with PMH significant for palpitations, recent suicide attempt with intetional Welbutrin overdose and seizure per neurology, currently on significant amount of xanax which she has not taken over the past week presenting with what appears to be a witnessed ?seizure, Now here with Suspected seizure neuro eval noted and pt is stable Elevated troponin unlikely ACS cardio to follow REcent suicide attempt, psych eval noted and pt is stable per psych Smoker Elevated trop in a pt with etoh use and drug use in the recent past REC Plan as noted above pt is stable Cardio to follow Aspirin Continue low-dose beta anna Continue Xanax
--- NOTE | 2017-11-22 09:10 | Patient Discharge Instructions ---
Discharge Instructions General Discharge Information You were seen/treated for: Elevated Troponins Watch for these problems: Chest pain, shortness of breath, seizures, syncope please visit the nearest emergency department Special Instructions: Please follow up with your PCP, nurse case manager and Neurologist within one week of discharge. Please have an EEG as an outpatient. Please do not drive until you've had your EEG and followed up with neurology as outpatient. Diet Continue normal diet: Yes Recommended Diet: Heart Healthy Activity Full Activity/No Limits: No Activity Self Limited: Yes Acute Coronary Syndrome Inclusion Criteria At DC or during hospital stay patient has or had the following: ACS DIAGNOSIS No Discharge Core Measures Meds if any: Prescribed or Continued at Discharge Meds if any: NOT Prescribed or Continued at Discharge Congestive Heart Failure Inclusion Criteria At DC or during hospital stay patient has or had the following: CHF DIAGNOSIS No Discharge Core Measures Meds if any: Prescribed or Continued at Discharge Meds if any: NOT Prescribed or Continued at Discharge Cerebrovascular accident Inclusion Criteria At DC or during hospital stay patient has or had the following: CVA/TIA Diagnosis No Discharge Core Measures Meds if any: Prescribed or Continued at Discharge Meds if any: NOT Prescribed or Continued at Discharge Venous thromboembolism Inclusion Criteria VTE Diagnosis No VTE Type NONE VTE Confirmed by (Test) NONE Discharge Core Measures - Per Current guidelines, there needs to be overlap - treatment for the first 5 days of Warfarin therapy. - If discharged on Warfarin prior to 5 days of - overlap therapy, the patient will need to be - assessed for post discharge needs including - *Post discharge parental anticoagulation - *Warfarin and/or parental anticoagulation education - *Follow up date to check INR post discharge At least 5 days overlap therapy as Inpatient No Meds if any: Prescribed or Continued at Discharge Note: Overlap Therapy is Warfarin and Anticoagulant Meds if any: NOT Prescribed or Continued at Discharge
[2017-11-22] MEDS ORDERED: ASPIRIN EC81 M1 PO (09:16)
[2017-11-22] MEDS ORDERED: PLAVIX75 M1 PO (09:16)
[2017-11-22] MEDS ORDERED: METOPROLOL TART25 M1 PO (09:16)
[2017-11-22] MEDS ORDERED: ATORVASTATIN CA40 M1 PO (09:16)
--- NOTE | 2017-11-22 13:37 | PN- Cardiology ---
Subjective Subjective: * No complaints of chest discomfort or shorntess of breath. No lightheadedness. Patient is anxious to be discharged. * sinus rhythm * Cardiac enzymes are trending down. Objective Vital Signs and I&Os Vital Signs Date Time Temp Pulse Resp B/P B/P Pulse O2 O2 Flow FiO2 Mean Ox Delivery Rate 11/23 799 97.2 68 16 94/62 95 Room Air 11/22 0400 94 Room Air 11/22 0000 57.0 57 18 114/66 94 Room Air 11/22 0000 94 Room Air 11/21 2111 97.5 64 27 119/56 11/21 1600 97.4 62 20 110/60 95 Room Air Intake & Output 11/22 1600 11/22 0811/22 0000 11/21 1600 11/21 0000 Intake Total 275.2 1000 103 Output Total 200 Balance 275.2 800 103 Intake, IV 155.2 600 103 Intake, Oral 120 400 Number 0 Bowel Movements Output, Urine 200 Patient 137 lb 133 lb Weight Weight Bed scale Standing Scale Measurement Method Physical Exam: General: WD/WN female in NAD; alert and oriented x 3 HEENT: NC/AT, PERRL, EOMI Neck: no JVD, no carotid bruit Heart: RRR w/o murmur Lungs: clear bilaterally Abdomen: soft, NT, +ve bowel sounds, mid line scar Extremities: no edema Assessment/Plan Assessment/Plan * The differential for this patient's event includes, but is not limited to, a TIA, seizure, hemodynamic instability due to dehydration and cardiac dysrhythmia. Neurology does not feel that her presentation is classic for a seizure and is inclined to pursue an outpatient workup for this. In consideration of her rising troponin and reports of chest discomfort we need to seriously consider arrhythmia as a possible cause of this event. I do get the sense that the patient both, has a poor memory and tends to play down her symptoms. Monitor on telemetry for arrhythmias or symptomatic bradycardia. * We will plan of risk stratification with a treadmill nuclear stress test tomorrow. * Begin aspirin, Plavix 75mg daily after a 300mg loading dose and IV heparin. * Change NTG to a patch at 0.4mg/hr for 12 hours daily. Continue Metoprolol at 25mg BID. Continue Atorvastatin 40-mg daily. * No tobacco or nicotine. Anxiolytics for tobacco withdrawal. * Increased LFT's are likely related to alcohol abuse and should be followed. Observe for withdrawal symptoms. * Okay to transfer to telemetry. Continue telemetry? Yes
[2017-11-22 15:41] VITALS: BP 98/62
[2017-11-22 15:41] LABS: PTT 58 SEC (25-37)
[2017-11-22 22:43] VITALS: BP 94/60
[2017-11-22 23:01] LABS: PTT 84 SEC (25-37)
[2017-11-23 06:12] VITALS: BP 80/62
--- NOTE | 2017-11-23 07:52 | PN- Housestaff ---
Concha Yanes 11/23/17 0752: Subjective Follow-up For: Elevated troponins, seizure Complaints: no complaints Tele-Events Since Last Visit: Normal sinus rhythm heart rate 78-90 Subjective: No complaints/no acute events overnight Review of Systems Constitutional: Reports: see HPI. Objective Last 24 Hrs of Vital Signs/I&O Vital Signs Date Time Temp Pulse Resp B/P B/P Pulse O2 O2 Flow FiO2 Mean Ox Delivery Rate 11/23 1449 98.2 84 18 108/74 99 Room Air 11/23 0612 97.1 83 16 80/62 94 08 2243 98.3 79 17 94/60 96 11/22 2206 79 90/48 Intake & Output 11/23 1600 11/23 0800 11/23 0000 Intake Total 580 220 220 Output Total Balance 580 220 220 Intake, IV 180 Intake, Oral 400 220 220 Patient 133 lb Weight Physical Exam General Appearance: Alert, Oriented X3, Cooperative, No Acute Distress Skin: No Rashes, No Breakdown, No Significant Lesion HEENT: Atraumatic, PERRLA, EOMI Neck: Supple Cardiovascular: Regular Rate, Normal S1, Normal S2, No Murmurs Lungs: Clear to Auscultation, Normal Air Movement Abdomen: Normal Bowel Sounds, Soft, No Tenderness, No Hepatospenomegaly, No Masses Neurological: Normal Gait, Normal Speech, Strength at 5/5 X4 Ext, Normal Tone, Sensation Intact Extremities: No Clubbing, No Cyanosis, No Edema, Normal Pulses Assessment/Plan Assessment: 57 year old female with past medical history significant for smoking, anxiety, and depression on Xanax for the past several years who was recently prescribed wellbutin for smoking cessation and had an intentional overdose managed at [place], with a reported seizure at that time (reportedly attributed to meds), presented with presyncopal symptoms, possible seizure, and admitted to ICU with elevated troponins. Vitals: Temperature 97.1, pulse 83, respirations 16, blood pressure 8 50 x 62, 94% room air. Labs: WBC 10.3, RBC 4.07, hemoglobin 12.9, hematocrit 38.8, platelet 386, APTT 62, sodium 142, potassium 4.5, chloride 106, bicarb 25, anion gap 11, BUN 21, creatinine 0.9 Problems: Plan: -Neurology is on board, seizure is unlikely, she is off Keppra -Adv not to drive until the EEG is cleared by neurology -Continue aspirin 81, plavix 75, metoprolol, atorvastatin, and nitropaste -Nuclear stress test done today for risk stratification -Cardiology consult placed -Recent suicide attempt, psych eval noted and pt is stable per psych. Continue Xanax -Cont. Aspirin, low-dose beta-anna -She wants to go home and can be a possible AMA -Regular diet -DVT ppx-on heparin gtt -Full code Problem List: 1. NSTEMI (non-ST elevated myocardial infarction) 2. Seizure Pain Ratin Pain Location: None Pain Goal: Remain pain free Pain Plan: Remain pain-free Tomorrow's Labs & Rationales: SARAH Fraire MD,Jojo 11/23/17 1521: Attending MD Review Statement Attending Statement Attending MD Statement: examined this patient, discuss w/resident/PA/DURAL MECHANIC, agreed w/resident/PA/DURAL MECHANIC, reviewed EMR data (avail), discussed with nursing, discussed with case mgmt, amended to note Attending Assessment/Plan: Patient seen and examined. Nursing staff reports she she was noted smoking on the balcony of the hospital floor earlier this morning. Later on she was discovered by personnel attempting to leave the hospital. She was returned back to her room. She is very eager to leave the hospital today. She has agreed to stay to her nuclear stress test is done today. She denies any chest pain or shortness of breath. Denies any palpitations. No events on telemetry monitoring overnight. Recommendations: -Patient scheduled to undergo nuclear stress test today. -Following the procedure today follow-up with the cardiology service regarding further recommendations. -If cleared by the cardiology service she may be discharged today. If further testing and management is recommended by the cardiology service patient will have to leave the hospital AGAINST MEDICAL ADVICE if she insists on leaving. The psychiatry service has stated that she has been sent and have the capacity to make her own decisions including signing out AMA. -She is to follow-up with the neurology service as an outpatient for further workup to rule out seizures as etiology of her presentation.
--- NOTE | 2017-11-23 08:02 | ECHOCARDIOGRAM REPORT ---
MIKAELA HOOD Age: 57 : 1960 Gender: F Exam Date: 11/22/2017 08:22 Exam Location: [facility] Ht (in): 60 Wt (lb): 137 BSA: 1.64 BP: 114 / 66 Ordering Physician: Mandeep Morocho MD Referring Physician: Roc Perez MD, PhD Technologist: Jennifer Iraheta [facility] Room Number: 108 Indications: MYOCARDIAL ISCHEMIA/WI Rhythm: Sinus Technical Quality: FAIR FINDINGS Left Ventricle Normal left ventricular size, wall thickness and systolic function with no obvious regional wall motion abnormalities. Normal left ventricular diastolic filling pattern for age. The ejection fraction is visually estimated at 60%. Right Ventricle The right ventricle is normal in size and function. Right Atrium The right atrium is normal in size. Left Atrium The left atrium is normal in size. The interatrial septum is intact. Mitral Valve The mitral valve is normal in structure and function. There is mild mitral regurgitation. Aortic Valve Structurally normal aortic valve without significant sclerosis or stenosis. There is no aortic regurgitation. Tricuspid Valve The tricuspid valve is normal in structure and function. There is no tricuspid regurgitation. Pulmonic Valve Structurally normal pulmonic valve. There is mild pulmonic regurgitation. Pericardium Normal pericardium without effusion. No pleural effusion. Great Vessels Normal aortic root dimension. The aortic arch and great vessels are well seen and are normal. CONCLUSIONS 1. Normal EF of 60%. 2. Mild mitral regurgitaiton. 3. Mild pulmonic regurgitation. Roc Perez M.D. (Electronically Signed) Final Date: 23 November 2017 08:01 MEASUREMENTS (Male / Female) Normal Values 2D ECHO LV Diastolic Diameter PLAX 4.1 cm 4.2 - 5.9 / 3.9 - 5.3 cm LV Systolic Diameter PLAX 2.5 cm 2.1 - 4.0 cm LV Fractional Shortening PLAX 39.0 % 25 - 46 % LV Ejection Fraction 2D Teich 69.9 % IVS Diastolic Thickness 1.0 cm LVPW Diastolic Thickness 1.1 cm LV Relative Wall Thickness 0.5 RV Internal Dim ED PLAX 2.6 cm 1.9 - 3.8 cm LVOT Diameter 1.9 cm Aortic Root Diameter 3.0 cm LA Systolic Diameter LX 3.1 cm 3.0 - 4.0 / 2.7 - 3.8 cm LA Volume 22.0 cm 18 - 58 / 22 - 52 cm Ascending Aorta Diameter 2.6 cm DOPPLER AV Peak Velocity 114.0 cm/s AV Peak Gradient 5.2 mmHg AV Mean Velocity 76.5 cm/s AV Mean Gradient 3.0 mmHg AV Velocity Time Integral 22.6 cm LVOT Peak Velocity 105.0 cm/s LVOT Peak Gradient 4.4 mmHg LVOT Mean Velocity 59.4 cm/s LVOT Mean Gradient 2.0 mmHg LVOT Velocity Time Integral 19.2 cm LVOT Stroke Volume 54.4 cm AV Area Cont Eq vti 2.4 cm AV Area Cont Eq pk 2.6 cm MV Peak Velocity 61.0 cm/s MV Peak Gradient 1.5 mmHg MV Mean Velocity 41.9 cm/s MV Mean Gradient 1.0 mmHg Mitral E Point Velocity 38.4 cm/s Mitral A Point Velocity 55.9 cm/s Mitral E to A Ratio 0.7 MV PHT Velocity 61.3 cm/s MV Deceleration [place] 146.0 cm/s MV Pressure Half Time 126.0 ms MV Area PHT 1.7 cm MV Deceleration Time 243.0 ms TR Peak Velocity 220.0 cm/s TR Peak Gradient 19.4 mmHg Right Atrial Pressure 5.0 mmHg Pulmonary Artery Systolic Pressu 24.4 mmHg Right Ventricular Systolic Press 24.4 mmHg PV Peak Velocity 97.5 cm/s PV Peak Gradient 3.8 mmHg PV Mean Velocity 61.1 cm/s PV Mean Gradient 2.0 mmHg PV Velocity Time Integral 18.6 cm LV E' Lateral Velocity 10.3 cm/s Mitral E to LV E' Lateral Ratio 3.7 LV E' Septal Velocity 5.7 cm/s Mitral E to LV E' Septal Ratio 6.7
[2017-11-23 14:44] LABS: PTT 62 SEC (25-37)
[2017-11-23 14:49] VITALS: BP 108/74
--- NOTE | 2017-11-23 15:15 | CT SCAN REPORT ---
EXAMINATION: CT HEAD WITHOUT CONTRAST CLINICAL INFORMATION: Seizure. COMPARISON: None TECHNIQUE: Contiguous axial imaging was performed from the skull base to vertex without intravenous administration of contrast. DLP: 543 mGy-cm FINDINGS: There is no evidence of acute intracranial hemorrhage or territorial infarction. No abnormal mass effect or midline shift is seen. Price to white matter differentiation is well preserved. No extra-axial fluid collections are identified. The ventricles are normal in size. There is no abnormal attenuation within the brain parenchyma. The osseous structures and soft tissues are normal. The mastoid air cells and visualized portions of the paranasal sinuses are well aerated. IMPRESSION: No acute intracranial pathology.
--- NOTE | 2017-11-23 17:04 | PN- Cardiology ---
Subjective Subjective: * No chest discomfort, shortness of breath, lightheadedness or palpitations. * sinus rhythm * hepatic transaminases are improving Objective Vital Signs and I&Os Vital Signs Date Time Temp Pulse Resp B/P B/P Pulse O2 O2 Flow FiO2 Mean Ox Delivery Rate 11/23 1449 98.2 84 18 108/74 99 Room Air 11/23 0612 97.1 83 16 80/62 94 / 2243 98.3 79 17 94/60 96 11/22 2206 79 90/48 Intake & Output 11/23 1600 11/23 0800 11/23 0000 11/22 1600 11/22 0800 11/22 0000 Intake Total 580 220 220 275.2 Output Total Balance 580 220 220 275.2 Intake, IV 180 155.2 Intake, Oral 400 220 220 120 Patient 133 lb Weight Physical Exam: General: WD/WN female in NAD; alert and oriented x 3 HEENT: NC/AT, PERRL, EOMI Neck: no JVD, no carotid bruit Heart: RRR w/o murmur Lungs: clear bilaterally Abdomen: soft, NT, +ve bowel sounds, mid line scar Extremities: no edema Assessment/Plan Assessment/Plan * The differential for this patient's event includes, but is not limited to, a TIA, seizure, hemodynamic instability due to dehydration and cardiac dysrhythmia. Neurology does not feel that her presentation is classic for a seizure and is inclined to pursue an outpatient workup for this. In consideration of her rising troponin and reports of chest discomfort we need to seriously consider arrhythmia as a possible cause of this event. I do get the sense that the patient both, has a poor memory and tends to play down her symptoms. No arrhythmias or bradycardia. * Stress test results are pending. If normal then we can discharge patient to home with follow up in the office in a week. * Continue aspirin and Plavix 75mg daily. Stop IV heparin. * Continue NTG to a patch at 0.4mg/hr for 12 hours daily. Continue Metoprolol at 25mg BID. Continue Atorvastatin 40-mg daily. * No tobacco or nicotine. Anxiolytics for tobacco withdrawal. * Increased LFT's are likely related to alcohol abuse and should be followed. Observe for withdrawal symptoms. Continue telemetry? Yes
[2017-11-23 23:05] VITALS: BP 112/60
--- NOTE | 2017-11-24 06:31 | PN- Housestaff ---
Subjective Follow-up For: nstemi Complaints: no complaints Tele-Events Since Last Visit: Normal sinus rhythm. Sinus bradycardia. Heart rate 54-60 Subjective: No complaints, No events overnight. Review of Systems Constitutional: Reports: see HPI. Objective Last 24 Hrs of Vital Signs/I&O Vital Signs Date Time Temp Pulse Resp B/P B/P Pulse O2 O2 Flow FiO2 Mean Ox Delivery Rate 11/25 0538 98.9 58 20 110/60 94 Room Air 11/24 2202 98.2 71 20 110/60 95 Room Air 11/24 2016 74 112/64 11/24 1400 97.9 66 20 98/60 96 Intake & Output 11/25 0800 11/25 0000 11/24 1600 Intake Total 100 400 Output Total Balance 100 400 Intake, Oral 100 400 Patient 128 lb Weight Weight Bed scale Measurement Method Physical Exam General Appearance: Alert, Oriented X3, Cooperative, No Acute Distress Skin: No Rashes, No Breakdown, No Significant Lesion Skin Temp/Moisture Exam: Cool/Dry HEENT: Atraumatic Neck: Supple Cardiovascular: Regular Rate, Normal S1, Normal S2 Lungs: Clear to Auscultation Abdomen: Normal Bowel Sounds, Soft, No Tenderness Neurological: Normal Gait, Normal Speech, Strength at 5/5 X4 Ext, Normal Tone Extremities: No Clubbing, No Cyanosis, No Edema Assessment/Plan Assessment: 57 year old female with past medical history significant for smoking, anxiety, and depression on Xanax for the past several years who was recently prescribed wellbutin for smoking cessation and had an intentional overdose managed at [place], with a reported seizure at that time (reportedly attributed to meds), presented with presyncopal symptoms, possible seizure, and admitted to ICU with elevated troponins. Vitals: Afebrile, pulse 60, respiratory rate 16, blood pressure 90/64, 97% on room air Problems: Cardiac SPECT scan:: A small region of reversible ischemia is present at the apical anterior wall. No other perfusion abnormalities are noted. Decreased thickening in the region of decreased perfusion in the apical anterior wall is suggested, but no other wall motion abnormalities are present. The left ventricular ejection fraction is normal. Plan: -Transferring to [facility] for cardiac cath, as per cardiac SPECT scan done today -Will be n.p.o. starting midnight -Continue aspirin 81, plavix 75, metoprolol, atorvastatin, and nitropaste -Cardiology consult -Regular diet -DVT ppx-on heparin gtt -Full code Problem List: 1. NSTEMI (non-ST elevated myocardial infarction) Pain Ratin Pain Location: None Pain Goal: Remain pain free Pain Plan: n/a Tomorrow's Labs & Rationales: bep
[2017-11-24 07:05] VITALS: BP 90/64
[2017-11-24 08:48] LABS: PTT 46 SEC (25-37)
--- NOTE | 2017-11-24 12:28 | NUCLEAR MEDICINE REPORT ---
EXERCISE STRESS AND RESTING SPECT MYOCARDIAL PERFUSION IMAGING STUDY WITH GATED SPECT IMAGES: CLINICAL INDICATION: Myocardial infarction. PROCEDURE: Regional myocardial perfusion was assessed using a 2 day protocol. Stress images were obtained on 11/23/2017 following the intravenous administration of 18.3 mCi Tc 99m Myoview. Stress was performed using the standard Gavin protocol, with the patient reaching a peak heart rate of 94% maximal predicted heart rate. Rest images were obtained 11/24/2017 following the intravenous administration of 31.1 mCi Technetium 99m Myoview. Single photon emission tomographic (SPECT) images were obtained. SPECT images were acquired in a 64 x 64 matrix of 64 projections over 180 degrees. These were reconstructed into standard short axis, horizontal and vertical long axis cardiac projections. FINDINGS: The post stress images show the left ventricular chamber to be normal in size. There is a small focus of markedly diminished activity involving the apical anterior wall. The activity in the other mejia appears normal. The rest images show improvement of the abnormality in the apical anterior wall with no definite perfusion abnormality present on the rest images. The other mejia are unchanged in the post stress images and appear normal. The stress images were obtained using a gated SPECT technique, which permits visualization of wall motion and calculation of the left ventricular ejection fraction. The left ventricular chamber is normal in size. No left ventricular wall motion abnormalities are noted. While the motion of the apical anterior wall appears normal, diminished thickening in this wall appears to be present. The calculated left ventricular ejection fraction is 59% on the stress study. No previous study is available for comparison. IMPRESSION: A small region of reversible ischemia is present at the apical anterior wall. No other perfusion abnormalities are noted. Decreased thickening in the region of decreased perfusion in the apical anterior wall is suggested, but no other wall motion abnormalities are present. The left ventricular ejection fraction is normal.
[2017-11-24 14:00] VITALS: BP 98/60
--- NOTE | 2017-11-24 14:08 | Discharge Summary ---
Visit Information Visit Dates Admission Date: 11/21/17 Discharge Date: 11/25/17 Hospital Course Course Attending Physician: Jojo Fraire MD Primary Care Physician: Britney Ballesteros APRN Hospital Course: Patient is a 57-year-old female with past medical history of palpitations on approximately 10 years prior reportedly worked up with no significant findings, history of migraines in the past currently not on any medication, gluten sensitivity, current smoker, recent intentional overdose on Wellbutrin hospitalized at [place] 2 weeks prior to this admission presenting after a witnessed seizure. Patient reports that at approximately 7 PM on day of admission she had a seizure which was witnessed by her son. At that time patient was standing in her driveway. Reports that she started shaking and her son caught her before she could fall. States that she was conscious and remembers the events leading up to the incident and afterwards. Denies any pre-or post total state. Denies loss of consciousness, loss of bowel or bladder function, denies biting her tongue or a metallic taste in her mouth. Patient reports feeling diaphoretic however states that this is normal for her. Patient denies any chest pain, palpitations, lightheadedness, visual disturbances. Denied any recent change in her appetite. Patient reports that she has not had a seizure in the past however after team spoke to neurology this morning she reportedly had a seizure 2 weeks ago after overdosing on Welbutrin. Also of note, patient is on xanax 1mg BID PRN and 2mg qHS. Reported to team this morning she has not been taking it over the past week.Patient reports that she has a history of palpitations and was worked up by cardiology which was negative. Reports a history of migraines in the past and is not currently on any medications. Patient denied any recent fever, chills, n/v/c/d, abdominal pain, chest pain, SOB, palpitations, lightheaded, dizziness, hematuria/dysuria. Hospital course Presyncope Risk factors of smoking, HLD Presyncopal episode initially thought to be seizure and was given Keppra. Patient was seen by neurologist who felt that her presyncopal episode was more of cardiac in origin rather than seizures. We followed her off Keppra. Patient is advised to do EEG as outpatient and not to drive until then. We will give referral to neurology. Elevated troponin likely Type II NSTEMI Patient had elevated troponin which peaked. She got nuclear stress test which showedA small region of reversible ischemia is present at the apical anterior wall. We consulted cardiology who planned to do cardiac cath today. During the hospital admission patient was Continued aspirin 81, plavix 75, metoprolol, atorvastatin, and nitropaste. She had IV heparin prior to the stress test. Her echocardiogram showed ejection fraction of 60% with no regional wall motion abnormality. Transaminitis: Patient had mild transaminitis. This could be due to alcohol ALT > AST 225/117, improved to 155/55 though this normally gives a 2:1 ratio of AST:ALT.her liver function trended down. Patient is advised to follow-up with her primary care physician. Allergies: Coded Allergies: amoxicillin (Severe, vomitting 11/21/17) Penicillins (UPSET STOMACH PER PT 11/20/17) diphenhydramine (From BENADRYL) (UPSET STOMACH PER PT 11/20/17) gluten (Mild, GI DISTRESS 11/21/17) Pertinent Lab Results: Echocardiogram 1. Normal EF of 60%. 2. Mild mitral regurgitaiton. 3. Mild pulmonic regurgitation. Stress test IMPRESSION: A small region of reversible ischemia is present at the apical anterior wall. No other perfusion abnormalities are noted. Decreased thickening in the region of decreased perfusion in the apical anterior wall is suggested, but no other wall motion abnormalities are present. The left ventricular ejection fraction is normal. Head CT IMPRESSION: No acute intracranial pathology. Disposition Summary Disposition Principal Diagnosis: Non-ST elevation myocardial infarction. Additional Diagnosis: Presyncope Discharge Disposition: other general hospital Discharge Instructions General Discharge Information Code Status: Full Code Patient's Diet: Heart healthy diet Patient's Activity: As tolerated Follow-Up Instructions/Appts: Please follow with primary care physician/neurologist/senior oracle pl sql developer within 1-2 weeks of discharge Medications at Discharge Discharge Medications: Continue taking these medications: Albuterol Sulfate (Proair Hfa) 90 MCG HFA.AER.AD 2 Puff Inhale through mouth As Directed as needed for RESP. Alprazolam (Alprazolam) 1 MG TABLET 1 Tablet ORAL THREE TIMES A DAY NEEDED Alprazolam (Alprazolam) 2 MG TABLET 1 Tablet ORAL TAKE AT BEDTIME as needed for ANXIETY Comments: Last Taken:11/24/17 Time:10PM Start taking the following new medications: Clopidogrel Bisulfate (Plavix) 75 MG TABLET 75 Milligram ORAL DAILY Qty = 30 No Refills Comments: Last Taken:11/25/17 Time:0800 Atorvastatin Calcium (Atorvastatin Calcium) 40 MG TABLET 40 Milligram ORAL DAILY Qty = 30 No Refills Comments: Last Taken:11/24/17 Time:5PM Aspirin (Ecotrin*) 81 MG TABLET. 81 Milligram ORAL DAILY Qty = 30 No Refills Comments: Last Taken:11/25/17 Time:0800 Nitroglycerin (Nitroglycerin Patch) 0.4 MG/HOUR PATCH.TD24 0.4 Milligram On the skin 1800 Qty = 30 No Refills Metoprolol Tartrate (Metoprolol Tartrate) 25 MG TABLET 1 Tablet ORAL TWICE DAILY Qty = 60 No Refills Comments: Last Taken:11/25/17 Time:10PM Copies To: Britney Ballesteros APRN; Ana SWEENEY PHD,Roc Moreira Attending MD Review Statement Documenting Attending: Jojo Fraire MD Other Findings: Patient is being transferred for cardiac catheterization. She is being transferred in stable condition.
--- NOTE | 2017-11-24 17:23 | PN- Cardiology ---
Subjective Subjective: * No current chest discomfort. * sinus rhythm * stress test is significant for ischemia. Objective Vital Signs and I&Os Vital Signs Date Time Temp Pulse Resp B/P B/P Pulse O2 O2 Flow FiO2 Mean Ox Delivery Rate 11/24 1400 97.9 66 20 98/60 96 11/24 0705 98.4 60 16 90/64 97 Room Air 11/23 2305 97.9 69 18 112/60 95 11/23 2125 78 122/86 Intake & Output 11/24 1600 11/24 0800 11/24 0000 11/23 1600 11/23 0800 11/23 0000 Intake Total 400 120 120 580 220 220 Output Total Balance 400 120 120 580 220 220 Intake, IV 180 Intake, Oral 400 120 120 400 220 220 Patient 136 lb 133 lb Weight Physical Exam: General: WD/WN female in NAD; alert and oriented x 3 HEENT: NC/AT, PERRL, EOMI Neck: no JVD, no carotid bruit Heart: RRR w/o murmur Lungs: clear bilaterally Abdomen: soft, NT, +ve bowel sounds, mid line scar Extremities: no edema Assessment/Plan Assessment/Plan * The differential for this patient's event includes, but is not limited to, a TIA, seizure, hemodynamic instability due to dehydration and cardiac dysrhythmia. Neurology does not feel that her presentation is classic for a seizure and is inclined to pursue an outpatient workup for this. In consideration of her rising troponin and reports of chest discomfort we need to seriously consider arrhythmia as a possible cause of this event. I do get the sense that the patient both, has a poor memory and tends to play down her symptoms. No arrhythmias or bradycardia. * This patient has a positive stress test consistent with ischemia. Will plan on a cardiac catheterization in AM and [facility]. Keep NPO except for medications after midnight. * Continue aspirin and Plavix 75mg daily. * Continue NTG to a patch at 0.4mg/hr for 12 hours daily. Continue Metoprolol at 25mg BID. Continue Atorvastatin 40-mg daily. * No tobacco or nicotine. Anxiolytics for tobacco withdrawal. Continue telemetry? Yes
[2017-11-24 22:02] VITALS: BP 110/60
[2017-11-25 05:38] VITALS: BP 110/60
--- NOTE | 2017-11-25 07:03 | PN- Housestaff ---
Concha Yanes 11/25/17 0703: Subjective Follow-up For: NSTEMI Complaints: no complaints Tele-Events Since Last Visit: Sinus bradycardia. 55-58. Heart rate fell down to 47 at 1:28 AM Subjective: No complaints no acute events overnight Review of Systems Constitutional: Reports: see HPI. Objective Last 24 Hrs of Vital Signs/I&O Vital Signs Date Time Temp Pulse Resp B/P B/P Pulse O2 O2 Flow FiO2 Mean Ox Delivery Rate 11/25 0538 98.9 58 20 110/60 94 Room Air 11/24 2202 98.2 71 20 110/60 95 Room Air 11/24 2016 74 112/64 11/24 1400 97.9 66 20 98/60 96 Intake & Output 11/25 0800 11/25 0000 11/24 1600 Intake Total 100 400 Output Total Balance 100 400 Intake, Oral 100 400 Patient 128 lb Weight Weight Bed scale Measurement Method Physical Exam General Appearance: Alert, Oriented X3, Cooperative, No Acute Distress Skin: No Rashes, No Breakdown, No Significant Lesion Skin Temp/Moisture Exam: Cool/Dry HEENT: Atraumatic Neck: Supple Cardiovascular: Regular Rate, Normal S1, Normal S2, No Murmurs Lungs: Clear to Auscultation, Normal Air Movement Abdomen: Normal Bowel Sounds, Soft, No Tenderness Neurological: Normal Gait, Normal Speech, Strength at 5/5 X4 Ext, Normal Tone Extremities: No Clubbing, No Cyanosis, No Edema Assessment/Plan Assessment: 57 year old female with PMH significant for smoking, anxiety, and depression on Xanax for the past several years who was recently prescribed wellbutin for smoking cessation and had an intentional overdose managed at [place], with a reported seizure at that time (reportedly attributed to meds), presented with presyncopal symptoms, possible seizure, and admitted to ICU with elevated troponins. Vitals: Temp 98.9, pulse 58, respiratory rate 20, BP 110/60, 94% on room air Problems: NSTEMI Plan: -Transferring to [facility] today for cardiac cath because her trops were high and her cardiac spect scan was +ve for apical reversible isschemia. -N.p.o. today -Continue aspirin and Plavix 75mg daily -Continue NTG to a patch at 0.4mg/hr for 12 hours daily -Continue Atorvastatin 40-mg daily -No tobacco or nicotine. Anxiolytics for tobacco withdrawal -DVT ppx-on heparin gtt -Full code Problem List: 1. NSTEMI (non-ST elevated myocardial infarction) Pain Ratin Pain Location: None Pain Goal: Remain pain free Pain Plan: n/a Tomorrow's Labs & Rationales: SARAH Fraire MD,Jojo 11/25/17 1040: Attending MD Review Statement Attending Statement Attending MD Statement: examined this patient, discuss w/resident/PA/CORRECTIONS SERGEANT, agreed w/resident/PA/CORRECTIONS SERGEANT, reviewed EMR data (avail), discussed with nursing, discussed with case mgmt, amended to note Attending Assessment/Plan: Patient had a nuclear stress test yesterday. Results revealed a small region of reversible ischemia present at the apical anterior wall. No other perfusion abnormalities were noted. Left ventricular ejection fraction is normal. This was discussed with the cardiology service. On account of her elevated troponins and evidence of ischemia on her nuclear stress test she will need cardiac catheterization to evaluate for coronary artery disease. Patient is in agreement with this plan. She is currently symptom-free and hemodynamically stable and will be transferred later on today.
[2017-11-25 08:09] VITALS: BP 116/62
[2017-11-25] MEDS ORDERED: NITROGLYCERIN1 EACH TOP (08:53)
== END 2017-11-25 11:50 | disposition short-term general hospital (02) | DRG 282 ==
LOC: ERH → ERHI 11-21 02:04 → 1NO 11-21 02:04 → ENRESERV 11-21 02:30 → CRI 11-21 03:23 → ENTRNSPT 11-22 14:32 → EDTRNSPTSTS 11-22 14:47 → EDTRNSPT 11-22 14:47 → CMPTRNSPT 11-22 15:14 → 1NO 11-22 15:36 → ENPENDDIS 11-25 09:59 → 1NO 11-25 11:50
PROVIDERS: Internal Medicine Infectious Disease; Physician Assistant Medical; Preventive Medicine Public Health & General Preventive Medicine; Student in an Organized Health Care Education/Training Program
DX: I21.4 Non-ST elevation (NSTEMI) myocardial infarction (principal); R56.9 Unspecified convulsions; F41.9 Anxiety disorder, unspecified; F17.210 Nicotine dependence, cigarettes, uncomplicated; Z79.51 Long term (current) use of inhaled steroids; R74.0 Nonspecific elevation of levels of transaminase and lactic acid dehydrogenase [LDH]; E78.5 Hyperlipidemia, unspecified; Z88.1 Allergy status to other antibiotic agents; Z88.0 Allergy status to penicillin; Z88.8 Allergy status to other drugs, medicaments and biological substances; F32.9 Major depressive disorder, single episode, unspecified; Z90.49 Acquired absence of other specified parts of digestive tract; Z90.710 Acquired absence of both cervix and uterus; K21.9 Gastro-esophageal reflux disease without esophagitis; Z91.5 Personal history of self-harm; F43.23 Adjustment disorder with mixed anxiety and depressed mood
CPT/HCPCS: 1NSP; CCU; 36415; 36592; 71045; 78452; 80307; 81001; 82436; 93005; 93010; 93016; 93017; 93306; A9502; G0480; J1644; J3490